=== PATIENT | male | born 1965 | race Caucasian/White ===

== ENCOUNTER 2016-12-18 01:08 | Inpatient (IN) | payer OTHER ==
[~2016-12-18] VITALS: Ht 180.3 cm; Wt 112.3 kg
[~2016-12-18 01:08] MED LIST: BENADRYL25 MG PO; DIPHENHYDRAMINE50 M1 PO; DIVALPROEX SOD250 M3 PO; HYDROXYZINE HCL50 M1 PO; LINDANE60 M1 TOP; LINDANE60 ML TOP; OLANZAPINE10 M1; PERMETHRIN60 GM TOP; PERPHENAZINE4 MG PO; POLYTRIM O200 GTT/BO OPH; PRAVASTATIN SOD20 M2 PO; PREDNISONE20 M1 PO; VENLAFAXINE HY150 MG PO; VENLAFAXINE HYD75 M1 PO; VENLAFAXINE225 MG PO; VITAMIN B121000 MC2 PO; VOLTAREN GEL1% TOP; ZYPREXA10 M1 PO
--- NOTE | 2016-12-18 01:14 | ED AMS/SEIZURE/WEAK/DIZZY ---
See Addendum History of Present Illness General Chief Complaint: ETOH/Drug Related Complaint Stated Complaint: ETOH? Source: patient, EMS Exam Limitations: intoxication Vital Signs & Intake/Output Vital Signs & Intake/Output Vital Signs Date Time Temp Pulse Resp B/P Pulse O2 O2 Flow FiO2 Ox Delivery Rate 12/18 2208 97.9 74 18 96/62 96 Room Air 12/18 1953 97.7 65 18 134/60 94 Room Air 12/18 1759 98.3 83 18 116/58 12/18 1753 98.3 83 18 116/58 95 Room Air 12/18 1337 88 18 126/84 97 Room Air 12/18 1335 98.3 81 20 120/59 12/18 1334 98.3 81 120/59 96 Room Air 12/18 1130 98.6 88 16 127/60 12/18 1128 98.6 88 16 127/60 94 Room Air 12/18 0845 97.1 82 20 115/69 99 Room Air ED Intake and Output 12/19 0000 12/18 1200 Intake Total 30 Output Total Balance 30 Intake, Oral 30 Patient 211 lb Weight Allergies Coded Allergies: Penicillins (UNKNOWN 10/07/16) Triage Nurses Notes Reviewed? yes Onset: Gradual Duration: hour(s): Timing: recent history Injury Environment: home Severity: moderate Modifying Factors: Improves With: rest. Associated Symptoms: "I was drinking tonight." HPI: 51 yo gentleman brought in by ambulance. Per the medics, "he got into an argument with his brother and said threatening statements. His brother called the police." The patient states to me, "I want to put a knife into the neck of my brother." "I might want to kill myself." "I want to go to [place] where they helped me before." He states he was drinking tonight, but denies other drug use. (MASHA BOWLING,ALEXANDRO Alan) Reconcile Medications Divalproex Sodium (Divalproex Sodium ER) 250 MG TAB.ER.24H 3 TAB PO QPM MENTAL HEALTH (Reported) Hydroxyzine Pamoate 50 MG CAPSULE 1 CAP PO QPM SLEEP (Reported) Olanzapine 20 MG TABLET 1 TAB PO QPM MENTAL HEATLH (Reported) (JENNIFER BOWLING,ABNER) Past History Travel History Traveled to [place] past 21 day No Medical History Any Pertinent Medical History? 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 No (MASHA BOWLING,ALEXANDRO Alan) Review of Systems Review of Systems Constitutional: Reports: no symptoms. EENTM: Reports: no symptoms. Respiratory: Reports: no symptoms. Cardiovascular: Reports: no symptoms. GI: Reports: no symptoms. Genitourinary: Reports: no symptoms. Musculoskeletal: Reports: no symptoms. Skin: Reports: no symptoms. Neurological/Psychological: Reports: no symptoms. Hematologic/Endocrine: Reports: no symptoms. Immunologic/Allergic: Reports: no symptoms. All Other Systems: Reviewed and Negative (MASHA BOWLING,ALEXANDRO Alan) Physical Exam Physical Exam General Appearance: well developed/nourished, anxious, moderate distress Head: atraumatic, normal appearance Eyes: Bilateral: normal appearance. Ears, Nose, Throat: normal pharynx, normal ENT inspection Neck: normal inspection, supple, full range of motion Respiratory: normal breath sounds, chest non-tender, no respiratory distress, quiet respiration, lungs clear Cardiovascular: regular rate/rhythm Gastrointestinal: normal bowel sounds, soft, non-tender, no organomegaly Back: normal inspection, normal range of motion Extremities: normal range of motion Neurologic/Psych: no motor/sensory deficits, awake, alert, oriented x 3, agitated, belligerent Reflexes: 1+: bicep (R), bicep (L), knee (R), knee (L). Skin: intact, normal color, warm/dry Core Measures ACS in differential dx? No CVA/TIA Diagnosis: No Severe Sepsis Present: No Septic Shock Present: No (MASHA BOWLING,ALEXANDRO Alan) Progress Differential Diagnosis: alcohol ingestion vs drugs vs other. Plan of Care: Orders Procedure Date/time Status Continuous Observation Monitor 12/18 1900 Active Continuous Observation Monitor 12/18 1500 Active Continuous Observation Monitor 12/18 1100 Active Continuous Observation Monitor 12/18 0700 Active Current Medications Sig/Katerina Start time Last Medication Dose Stop Time Status Admin Olanzapine 20 MG QAM 12/19 1000 UNVr (Zyprexa) 12/19 1001 Initial ED EKG: none Hand-Off Endorsed To: ABNER RODRIGUEZ MD Endorsed Time: 0700 Pending: consult, other (sobriety) (ALEXANDRO FLANAGAN MD) Hand-Off Endorsed To: VEE BAKER MD Endorsed Time: 1900 Pending: CT (bed searcg), consult, other (ABNER RODRIGUEZ MD) Hand-Off Endorsed To: ABNER RODRIGUEZ MD Endorsed Time: 0700 Pending: consult (INPATIENT BED SEARCH) (VEE BAKER MD) Departure Departure Disposition: STILL A PATIENT Condition: Stable Clinical Impression Primary Impression: Alcohol intoxication Secondary Impressions: Depression Referrals: UNKNOWN (PCP/Family) Departure Forms: Customer Survey General Discharge Information (ALEXANDRO FLANAGAN MD) Departure Departure Disposition: STILL A PATIENT Condition: Stable Clinical Impression Primary Impression: Alcohol intoxication Secondary Impressions: Depression Referrals: UNKNOWN (PCP/Family) Departure Forms: Customer Survey General Discharge Information (ALEXANDRO FLANAGAN MD)
[2016-12-18 02:01] LABS: ABSOLUTE BASOPHIL COUNT 0.1 /CUMM (0.0-0.2); ABSOLUTE EOSINOPHIL COUNT 0 /CUMM (0.0-0.7); ABSOLUTE GRANULOCYTE CT 4.6 /CUMM (1.4-6.5); ABSOLUTE LYMPH COUNT 1.6 /CUMM (1.2-3.4); ABSOLUTE MONOCYTE COUNT 0.3 /CUMM (0.10-0.60); BASOPHIL % 0.9 % (0.0-2.0); EOSINOPHIL % 0.3 % (0-5); GRANULOCYTE % 70.1 % (42.2-75.2); MEAN CORPUSCULAR HGB CONC 34.8 G/DL (33.0-37.0); MEAN CORPUSCULAR VOLUME 94.9 FL (80.0-94.0); MEAN PLATELET VOLUME 6.7 FL (7.4-10.4); PLATELET COUNT 286 /CUMM (130-400); RBC DISTRIBUTION WIDTH 13.2 % (11.5-14.5); RED BLOOD CELL CT 4.64 /CUMM (4.70-6.10); WHITE BLOOD CELL COUNT 6.5 /CUMM (4.8-10.8)
[2016-12-18 11:30] VITALS: BP 127/60
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
[2016-12-18 13:35] VITALS: BP 120/59
[2016-12-18] MEDS ORDERED: OLANZAPINE20 M1 PO (14:40)
[2016-12-18] MEDS ORDERED: HYDROXYZINE PAM50 M1 PO (14:40)
[2016-12-18 17:59] VITALS: BP 116/58
[2016-12-18 22:09] VITALS: BP 96/62
[2016-12-19] VITALS (8 sets, daily range): BP systolic 97–128; BP diastolic 51–75
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
[2016-12-20 03:32] VITALS: BP 130/70
[2016-12-20 06:09] VITALS: BP 138/69
[2016-12-20 10:27] VITALS: BP 117/69
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
[2016-12-20 15:25] VITALS: BP 135/85
[2016-12-20 15:29] VITALS: BP 137/91
--- NOTE | 2016-12-20 15:56 | History & Physical ---
General Information and HPI MD Statement: I have seen and personally examined MELIA HERNADEZ and documented this H&P. The patient is a 51 year old M who presented with a patient stated chief complaint of suicidal ideation Source of Information: patient Exam Limitations: no limitations History of Present Illness: 51-year-old male with past medical history significant for alcohol dependence, anxiety, bipolar disease, depression, schizo affective disorder, hyperlipidemia, GERD who is admitted to Inpatient Psychiatry with suicidal ideation. Patient also had some auditory hallucinations. He also expressed homicidal ideation towards his brother according to the note in the emergency room. Patient claims that he lives in a tent because he cannot live with his brother anymore. He tries to follow-up with behavioral health regularly. He was also drinking alcohol. He fell backwards and now has a bruise on his back. He also complains of pain in his left heel due to a past history of calcaneal fracture which was healed on its own. He denies any shortness of breath, fevers, chills, abdominal pain, nausea, vomiting, diarrhea, constipation or urinary complaints. Allergies/Medications Allergies: Coded Allergies: Penicillins (UNKNOWN 10/07/16) Home Med list Divalproex Sodium (Divalproex Sodium ER) 250 MG TAB.ER.24H 3 TAB PO QPM MENTAL HEALTH (Reported) Hydroxyzine Pamoate 50 MG CAPSULE 1 CAP PO QPM SLEEP (Reported) Olanzapine 20 MG TABLET 1 TAB PO QPM MENTAL HEATLH (Reported) Past History Travel History Traveled to [place] past 21 day No Medical History Neurological: NONE EENT: NONE Cardiovascular: NONE Respiratory: NONE Gastrointestinal: GERD Hepatic: NONE Renal: NONE Musculoskeletal: chronic back pain Psychiatric: alcohol dependence, anxiety, bipolar disease, depression, schizo affective disorder Endocrine: NONE Blood Disorders: NONE Cancer(s): NONE ASSEMBLY TECHNICIAN/Reproductive: NONE History of MRSA: No History of VRE: No History of CDIFF: No Isolation History: Standard Surgical History Surgical History: Hand surgery Past Family/Social History Family History Relations & Conditions if any FATHER FH: myocardial infarction Psychosocial History Who Do You Live With? Brother Services at Home: None Primary Language: Kyrgyz Functional Ability ADLs Independent: dressing, eating, toileting, bathing. Ambulation: independent IADLs Independent: shopping, housework, finances, food prep, telephone, transportation , medication admin. Review of Systems Review of Systems Constitutional: Reports: see HPI. EENTM: Reports: see HPI. Cardiovascular: Reports: see HPI. Respiratory: Reports: see HPI. GI: Reports: see HPI. Genitourinary: Reports: see HPI. Musculoskeletal: Reports: see HPI. Skin: Reports: see HPI. Neurological/Psychological: Reports: see HPI. Exam & Diagnostic Data Last 24 Hrs of Vital Signs/I&O Vital Signs Date Time Temp Pulse Resp B/P Pulse O2 O2 Flow FiO2 Ox Delivery Rate 12/20 1529 82 137/91 12/20 1525 96.5 72 135/85 12/20 1333 97.0 73 18 138/85 96 Room Air 12/20 1028 97.7 72 20 117/69 96 Room Air 12/20 1027 97.7 72 20 117/69 12/20 0609 97.0 72 16 138/69 12/20 0608 97.0 72 16 138/69 95 Room Air 12/20 0332 98.0 80 18 130/70 12/20 0329 98.0 80 18 130/70 96 Room Air 12/19 2313 98.8 85 18 142/73 96 Room Air 12/19 2107 97.5 65 16 118/58 94 Room Air 12/19 2106 97.5 65 16 118/58 12/19 1910 97.5 65 16 118/75 12/19 1858 97.5 65 16 118/75 95 Room Air Intake & Output 12/20 1600 12/20 0800 12/20 0000 Intake Total Output Total Balance Patient 248 lb Weight Physical Exam General Appearance Alert, Oriented X3, Cooperative Skin bruising in the right flank area HEENT PERRLA Neck Supple Cardiovascular Regular Rate, Normal S1, Normal S2 Lungs Clear to Auscultation Abdomen Normal Bowel Sounds, Soft, No Tenderness Neurological Cranial Nerves II through XII: intact Extremities No Edema Last 24 Hrs of Labs/Edi: Laboratory Tests 12/20/16 0610: Triglycerides 153 H, Cholesterol 300 H, LDL Cholesterol, Calc 238 H, HDL Cholesterol 32 L, Cholesterol/HDL Ratio 9 H, Amylase 56, TSH 2.220, Valproic Acid 47.9 L Laboratory Tests 12/20 12/18 12/18 0610 0154 0140 Chemistry Sodium (137 - 145 mmol/L) 139 Potassium (3.5 - 5.1 mmol/L) 4.3 Chloride (98 - 107 mmol/L) 102 Carbon Dioxide (22 - 30 mmol/L) 21 L Anion Gap (5 - 16) 15 BUN (9 - 20 mg/dL) 14 Creatinine (0.7 - 1.2 mg/dL) 1.2 Estimated GFR (>60 ml/min) > 60 BUN/Creatinine Ratio (7 - 25 %) 11.7 Glucose (65 - 99 mg/dL) 132 H Calcium (8.4 - 10.2 mg/dL) 9.5 Total Bilirubin (0.2 - 1.3 mg/dL) 1.0 AST (17 - 59 U/L) 23 ALT (21 - 72 U/L) 36 Alkaline Phosphatase (< 127 U/L) 60 Total Protein (6.3 - 8.2 g/dL) 8.0 Albumin (3.5 - 5.0 g/dL) 4.6 Globulin (1.9 - 4.2 gm/dL) 3.4 Albumin/Globulin Ratio (1.1 - 2.2 %) 1.4 Triglycerides (<150 mg/dL) 153 H Cholesterol (< 200 MG/DL) 300 H LDL Cholesterol, Calc (65 - 129 mg/dL) 238 H HDL Cholesterol (40 - 60 mg/dL) 32 L Cholesterol/HDL Ratio (0.00 - 4.88 %) 9 H Amylase (30 - 110 U/L) 56 TSH (0.270 - 4.200 uIU/mL) 2.220 Hematology CBC w Diff NO MAN DIFF REQ WBC (4.8 - 10.8 /CUMM) 6.5 RBC (4.70 - 6.10 /CUMM) 4.64 L Hgb (14.0 - 18.0 G/DL) 15.3 Hct (42 - 52 %) 44.0 MCV (80.0 - 94.0 FL) 94.9 H MCH (27.0 - 31.0 PG) 33.0 H RDW (11.5 - 14.5 %) 13.2 Plt Count (130 - 400 /CUMM) 286 MPV (7.4 - 10.4 FL) 6.7 L Gran % (42.2 - 75.2 %) 70.1 Lymphocytes % (20.5 - 51.1 %) 23.9 Monocytes % (1.7 - 9.3 %) 4.8 Eosinophils % (0 - 5 %) 0.3 Basophils % (0.0 - 2.0 %) 0.9 Absolute Granulocytes (1.4 - 6.5 /CUMM) 4.6 Absolute Lymphocytes (1.2 - 3.4 /CUMM) 1.6 Absolute Monocytes (0.10 - 0.60 /CUMM) 0.3 Absolute Eosinophils (0.0 - 0.7 /CUMM) 0 Absolute Basophils (0.0 - 0.2 /CUMM) 0.1 PUBS MCHC (33.0 - 37.0 G/DL) 34.8 Toxicology Urine Opiates Screen (>2000 NG/ML) < 100.00 Methadone Screen (>300 NG/ML) < 40 Barbiturate Screen (>200 NG/ML) < 60 Valproic Acid (50 - 120 ug/mL) 47.9 L Ur Phencyclidine Scrn (>25 NG/ML) < 6.00 Amphetamines Screen (>1000 NG/ML) < 100 U Benzodiazepines Scrn (>200 NG/ML) < 85 Urine Cocaine Screen (>300 NG/ML) < 50 Urine Cannabis Screen (>50 NG/ML) < 5.00 Serum Alcohol (<10 MG/DL) 263.0 12/18 0114 Chemistry Hemoglobin A1c Pending Assessment/Plan Assessment: 51-year-old male with past medical history significant for alcohol dependence, anxiety, bipolar disease, depression, schizo affective disorder, GERD, Hyperlipidemia who is now admitted with suicidal ideation, psychosis. Patient is admitted to Inpatient Psychiatry. His lipid panel is showing very high LDL as well as triglycerides. Statin has been added. Can use Tylenol as needed for pain in the heel. I will leave the psychiatric management up to psychiatrist. As Ranked By This Provider Problem List: 1. Alcohol abuse 2. Depression 3. Suicidal ideations 4. Schizophrenia Miscellaneous Miscellaneous Documentation Attending Case Discussed With: Kelsi Woodward MD Primary Care Physician: UNKNOWN Patient sees these [facility] Behavior[facility]. Level of Patient Care: JACKIE Alfaro
[2016-12-20 19:44] VITALS: BP 147/91
[2016-12-21 08:01] VITALS: BP 135/88
[2016-12-21 12:15] VITALS: BP 144/83
--- NOTE | 2016-12-21 14:23 | SOCIAL WORKER PROG NOTE PSYCH ---
Social Work Progress Note Progress Note Darek informed me that he has an appt. on 12/[address] to pay a $50 fine. He signed a release for me to fax a letter to them. Darek reports that his Brother is being evicted from his apt. because someone reported that he was staying with him. Darek has been staying in a tent in the [facility] for the last week. Darek wants to stay connected to [facility]. This is why he hasn't wanted to leave the [place] area. He would like to be able to get into [facility], but hasn't been able to get in. Reports that he had an appt. with [address] a month ago, but reports nothing happens and he doesn't want to go to a [facility] in [place] and have to carry his stuff around all day. We talked about housing options: [facility] in [facility], [facility] in [place], and he brought up a ministry program in [place] that has housing. He has been reluctant, due to all services being in [place]. He signed a release for [facility] and encouraged me to speak with his rn case manager hospice Bradley Jaramillo. Reports that he has been taking his meds. Minimized any drinking, stating he has drank a couple of beers with his brother a couple days a week if at that.
[2016-12-21 16:03] VITALS: BP 147/89
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
--- NOTE | 2016-12-21 17:36 | SOCIAL WORKER TX PLAN PSYCH ---
Treatment Plan - Please Document: - Evidence that there is ongoing collaboration between - the patient and the interdisciplinary team, - including the patient's active participation and - responsibility for engaging in the treatment regimen, - and that the treatment plan is individualized and - relevant to the patient's conditions. - Treatment plan should reflect documentation indicating - that all active therapeutic efforts are included. Strengths/Capabilities: Pt is able to articulate his wants and needs. Pt is asking for help at present. Physical Limitations (Interventions): None identified. Patient Identified Trmt Goals: "I need a place to go" Discharge Plan: Patient will need referrals for housing. Has clinical follow up with [facility]. Problem/Goals #1 Problem #1: depression Goal (Short Term): I will go to 3 groups a day Goal (Teachers Assistant): I will take my medications as prescribed Interventions: Patient will be offered medication management with the TEACHER DRAMATICS, groups on symptom management, coping skills, goals group, relaxation, accupuncture, self-esteem. Production Cloth Cutter will discuss events triggering depression and help problem solve around housing dilemma. Production Cloth Cutter will coordinate with clinical provider and assist with aftercare. Problem/Goals #2 Problem #2: alcohol dependence/abuse Goal (Short Term): patient will identify triggers to alcohol use. Goal (M[facility]): patient will develop a relapse prevention plan Interventions: patient will be offered groups on relapse prevention, AA, coping skills. Production Cloth Cutter will discuss attendance at AA in the commmunity and pros and cons to behavior. DSM5/PS Stressors/Medical Prob Diagnosis' (DSM 5, Stressors, Medical): F25.1 Schizoaffective Disorder, Depressive Type F10.20 Alcohol Use Disorder, Severe Current GAF: 29 Treatment Team - Responsibilities of members of the treatment team include: - Medication Management- MD or TEACHER DRAMATICS - Medication Administration and Monitoring- Nurse - Group Therapy- Occupational Therapist - 1:1 Therapy,Disch Planning,family involvement-Production Cloth Cutter
[2016-12-21 20:01] VITALS: BP 145/83
[2016-12-22 08:01] VITALS: BP 128/94
[2016-12-22 13:28] VITALS: BP 136/91
--- NOTE | 2016-12-22 15:45 | SOCIAL WORKER PROG NOTE PSYCH ---
Social Work Progress Note Progress Note Darek was in bed alot today. Met with Lulu Torres APRN and I. Said he was sad today. Rated sadness at a 9 out of 10 (10 being worst). He is looking to have some of his belongings moved out of his Brother's house. His cousin will most likely pick them up and bring them to her house. He will have a duffle bag and backpack that he will need to get when he leaves here. He was more open today to looking at various options for housing outside of the [place] area. He remained closed off to the idea of going to [facility], but open to possibilities in [place]. He agreed to do a [facility] to the [facility]. He also signed release for me to contact [facility]. He said he would like to get into the [address] [place] [id number] ministry program in [place]. He was there in the past and believes he was in good standing when he left. I told him I would get him the number for him to call. He was tearful during the meeting, anxious about where he will be going from here. I called [facility] and I was told that he was not on their waiting list and that he really needed to go back through [facility]. I sent a clinical packet to [facility] in [place].
[2016-12-22 16:35] VITALS: BP 150/78
--- NOTE | 2016-12-22 16:49 | CP SOUTH PROGRESS NOTE PSYCH ---
Psych (Inpt) Progress Note Progress Note Include the following elements, when applicable: Involvement in the active treatment of the patient with behavioral observations of the patient and the patient's response to the treatment. Review of the ongoing treatment process in the context of the treatment plan. Indication of how multi-disciplinary staff members are carrying out the treatment plan. Plans for future interventions and recommendations for revision of the treatment plan. Liaison with other physicians/providers. Progress Note: [I discussed this patient's progress to date, current mental status, treatment process in the context of the treatment plan, and discharge planning with staff/ team in the daily morning inpatient team meeting. I also met with the patient myself in individual session.] SUBJECTIVE: "I'm sad." OBJECTIVE: Current Medications Sig/Katerina Start time Last Medication Dose Route Stop Time Status Admin Acetaminophen 650 MG Q6P PRN 12/20 1230 AC PO Al Hydroxide/Mg 30 ML Q4-6 PRN PRN 12/20 1230 AC Hydroxide PO Divalproex Sodium 1,000 MG AT BEDTIME 12/21 2200 AC 12/21 PO 2152 Folic Acid 1 MG DAILY 12/20 1235 DC 12/22 PO 12/22 1001 0754 Hydroxyzine HCl 50 MG Q6P PRN 12/20 1230 AC PO Lorazepam 0.5 MG 0800,12/23 2000 AC PO 12/24 0801 Lorazepam 0.5 MG FOUR TIMES A DAY 12/22 1000 AC 12/22 PO 12/22 2101 1355 Lorazepam 1 MG 12/21 2200 DC 12/21 PO 12/21 2201 2153 Lorazepam 2 MG Q2P PRN 12/20 1245 AC PO Lorazepam 1 MG Q2P PRN 12/20 1245 AC PO Lorazepam 1 MG Q6 12/20 1245 DC 12/21 PO 1251 Magnesium Hydroxide 30 ML AT BEDTIME PRN 12/20 1230 AC PO Multivitamins 1 TAB DAILY 12/20 1235 AC 12/22 PO 0754 Olanzapine 20 MG AT BEDTIME 12/21 2200 AC 12/21 PO 2152 Pravastatin Sodium 20 MG 1700 12/20 1700 AC 12/21 PO 1827 Thiamine HCl 100 MG DAILY 12/20 1235 DC 12/22 PO 12/22 1001 0754 Vital Signs Date Time Temp Pulse Resp B/P Pulse O2 O2 Flow FiO2 Ox Delivery Rate 12/22 1635 76 150/78 12/22 1328 94 136/91 12/22 08 96.2 69 128/94 12/21 2000 96.5 86 145/83 ASSESSMENT: Met with patient today, together with Bailee Rodas LCSW. Patient presented A&Ox4. Presented sad and guarded. Affect was mostly constricted, but tearful at times when expressing his housing concerns. Expressed his concerns of being uncertain of where he will discharge to. He reported that he was in contact with his cousin, who will get his belongings from his brother's home. He reported feeling somewhat hopeless and helpless secondary to housing issues. He denied feeling worthless and guilty. He reported sadness of 9/10 (10 being the worst). He denied acute symptoms of anxiety. He denied active and passive suicidal ideation , plans and intent. He denied homicidal ideation. There was no evidence of paranoia or delusions. He denied auditory and visual hallucinations. Thought process was linear and organized. Thought content was appropriate. Cognition was grossly intact. Reported his sleep as good. Reported appetite as fair, and that he vomited once last night. No vomiting episodes today. Patient was informed to notify nursing if this should recur. He denied further physical complaints. Patient reported tolerating medications well and denied untoward medication effects. Agreeable to continue taking medications. Informed of VPA level tomorrow morning. Patient verbalized understanding. PLAN: 1. Continue current medications. 2. VPA level scheduled tomorrow morning at 0600. 3. Continue monitoring the patient on unit for safety and mood. 4. Dispo planning per primary team.
[2016-12-22 19:44] VITALS: BP 134/79
--- NOTE | 2016-12-23 08:19 | CP SOUTH PROGRESS NOTE PSYCH ---
Psych (Inpt) Progress Note Progress Note Include the following elements, when applicable: Involvement in the active treatment of the patient with behavioral observations of the patient and the patient's response to the treatment. Review of the ongoing treatment process in the context of the treatment plan. Indication of how multi-disciplinary staff members are carrying out the treatment plan. Plans for future interventions and recommendations for revision of the treatment plan. Liaison with other physicians/providers. Progress Note: [I discussed this patient's progress to date, current mental status, treatment process in the context of the treatment plan, and discharge planning with staff/ team in the daily morning inpatient team meeting. I also met with the patient myself in individual session.] SUBJECTIVE: "I'm alright, I guess." OBJECTIVE: Laboratory Tests 12/23 558 Toxicology Valproic Acid (50 - 120 ug/mL) 50.4 Current Medications Sig/Katerina Start time Last Medication Dose Route Stop Time Status Admin Acetaminophen 650 MG Q6P PRN 12/20 1230 AC PO Al Hydroxide/Mg 30 ML Q4-6 PRN PRN 12/20 1230 AC Hydroxide PO Divalproex Sodium 1,000 MG AT BEDTIME 12/21 2200 AC 12/22 PO 2136 Folic Acid 1 MG DAILY 12/20 1235 DC 12/22 PO 12/22 1001 0754 Hydroxyzine HCl 50 MG Q6P PRN 12/20 1230 AC 12/23 PO 0751 Lorazepam 0.5 MG 0800,12/23 2000 CAN PO 12/24 0801 Lorazepam 0.5 MG 0800,12/23 0800 AC PO 12/23 2201 Lorazepam 0.5 MG FOUR TIMES A DAY 12/22 1000 DC 12/22 PO 12/22 2101 2101 Lorazepam 2 MG Q2P PRN 12/20 1245 AC PO Lorazepam 1 MG Q2P PRN 12/20 1245 AC PO Magnesium Hydroxide 30 ML AT BEDTIME PRN 12/20 1230 AC PO Multivitamins 1 TAB DAILY 12/20 1235 AC 12/23 PO 0751 Olanzapine 20 MG AT BEDTIME 12/21 2200 AC 12/22 PO 2136 Pravastatin Sodium 20 MG 1700 12/20 1700 AC 12/22 PO 1806 Thiamine HCl 100 MG DAILY 12/20 1235 DC 12/22 PO 12/22 1001 0754 Vital Signs Date Time Temp Pulse Resp B/P Pulse O2 O2 Flow FiO2 Ox Delivery Rate 12/22 1943 97.8 88 134/79 12/22 1635 76 150/78 12/22 1328 94 136/91 ASSESSMENT: Met with patient today at 8:00AM. Presented A&Ox3. Appeared guarded and withdrawn. Engaged in conversation with prompting and when asked direct questions. Affect was constricted. Mood, "alright, I guess." Patient continued to express concerns about where he will discharge to, and reported feeling guilty over his brother's recent eviction, identifying that he was the cause for this. Reported sleeping poorly, due to present roommate snoring last night. Denied NMA. Reported appetite as good. Denied further episodes of vomiting since yesterday. Had no physical complaints. Reported feeling helpless and hopeless, related to uncertainty of housing status. Reported sadness of 7/10 (10 being the worst) and anxiety of 4/10 (10 being the worst), related to housing concerns. Reported "I would feel so much better If I had somewhere to go to." Reported + racing thoughts triggered by anxiety of not knowing where he will go to from here. Patient denied passive and active suicidal ideation, plans and intent. He denied homicidal ideation. He denied auditory and visual hallucinations. There was no evidence of paranoia or delusions. Thought process was linear and organized. Thought content was appropriate. Cognition was grossly intact. Patient is future oriented to find temporary residence, and reported leaving a yesterday for [address] [place] [address] [employer] [facility] in [place], where he had stayed in the past and received medication management through [facility] in [place]. Patient reported tolerating medication well, and denied untoward medication effects. VPA level this morning was 50.4. Patient agreeable to increasing Depakote ER to 1500mg at HS to further target racing thoughts. PLAN: 1. Continue monitoring the patient on unit for safety, mood and racing thoughts. 2. Increase Depakote ER to 1500mg at HS. 3. Rpt VPA level scheduled for 12/26/16 at 0600. 4. Dispo planning per primary team.
[2016-12-23 08:31] VITALS: BP 130/79
--- NOTE | 2016-12-23 09:11 | SOCIAL WORKER PROG NOTE PSYCH ---
Social Work Progress Note Progress Note Called the [address] [place] [address] in [place] this morning and left a message this morning to see about the referral process. Called [facility] as well, but didn' t reach anyone. Darek has been in bed all day. Remains isolative. We talked for a few minutes. He refuses a referral to [facility]. He is set on staying in his tent in the [place], so that he can get to his [facility] appts. I told him that I heard back from Sebastien at [address] [place] [address] and he left a message stating that there are no beds open right now, but he could go to their outpatient and get in a bed a soon as one opens. Darek stated that they would want him to stay at the overflow long-term in the meantime and he's not going to do that. I told him that we are proposing discharge for Tuesday and he's really limiting his options. Encouraged him to call 211 today. He refuses to go through their system, as he has tried and feels it doesn't help. Continues to remain sad/ depressed, no current SI. Complaining for a 2nd day in a row that his stomach was upset and that he vomitted in the morning. Asked if he told nursing? He said no. Reminded him that he needed to tell nursing.
[2016-12-23 12:09] VITALS: BP 136/78
[2016-12-23 16:04] VITALS: BP 147/90
[2016-12-23 20:08] VITALS: BP 145/78
[2016-12-24 07:46] VITALS: BP 133/81
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
--- NOTE | 2016-12-24 10:46 | IP INCIDENTAL NOTE PSYCH ---
Incidental Note Notation: left ([phone]) for Dr. Ring from [facility], for clinical collateral. Awaiting return phone call.
--- NOTE | 2016-12-24 11:22 | SOCIAL WORKER PROG NOTE PSYCH ---
Social Work Progress Note Progress Note Talked to Rhea Ibrahim at [facility] about Darek. Gave her an update about his refusals for housing referrals and to call 211. Appt follow up: 12/30 10:30 group , 01/04 appt. with Camilo Bell (clinician) 10am, 01/[address] 12:[address] Ring. Informed her that Darek will be discharged on Tuesday and that his plan was to go to the tent he has set up in the [facility].
[2016-12-24 12:25] VITALS: BP 134/76
[2016-12-24 15:55] VITALS: BP 151/79
--- NOTE | 2016-12-24 16:27 | SOCIAL WORKER PROG NOTE PSYCH ---
Social Work Progress Note Progress Note Met with Darek this morning, he was in bed. He stated he didn't sleep last nigh ('My roommate was snoring."). He denied SI/HI, no AH/VH. His thoughts were organized. He reports he is "depressed," stated he is livign in a tent in the [facility]. Discussed possible options such as calling 211 (he reports he has gone to [facility] and [facility] [place] [facility] to compelte applications for a fpc bed, but there are no beds available where he wants - [facility]). Darek stated "I am not going to fill out more paperwork just to be told there are no beds open at [facility]." Discussed going to [facility] for 2 weeks in [place] or [place], he refused stating "then what"... where will I go? Explained that he can have some time to wait for a bed to open up, and how he may need to be open to going to other towns other than the [place]. He is refusing to consider this.. "I am fine with staying in my tent." He explained how his brother is at risk of losing his apartment due to having hi (Darek) stay with him, and that he (Darek) could go to his ex-girlfriends apartment "but she is crazy..I'd rather stay in the [facility] in my tent." Darek stated he did stay in [place] for a couple nights, at a fpc and didn't like how there were other people there using drugs. Informed Darek Bradley Morales his porter sample case/peer support from [facility] will be visiting him today. Darek stated he doesn't want to live anywhere else because he wants to keep going to [facility] ..."I go to [facility] 3x per week."
[2016-12-24 19:45] VITALS: BP 144/89
[2016-12-25 07:33] VITALS: BP 138/88
[2016-12-25 12:11] VITALS: BP 120/83
--- NOTE | 2016-12-25 15:00 | CP SOUTH PROGRESS NOTE PSYCH ---
Psych (Inpt) Progress Note Progress Note Include the following elements, when applicable: Involvement in the active treatment of the patient with behavioral observations of the patient and the patient's response to the treatment. Review of the ongoing treatment process in the context of the treatment plan. Indication of how multi-disciplinary staff members are carrying out the treatment plan. Plans for future interventions and recommendations for revision of the treatment plan. Liaison with other physicians/providers. Progress Note: Isolative, spending much of the time in his room. Stated that he had thrown up once yesterday, none today educated him to inform staff and maintain hydration. Stated that he has a bit of a stomach ache but no other sx. Stated that he wants to return to [facility] and needs to live in his tent in order to get there; that he is aware no miracles happen about housing but will speak w/ SW to discuss any changes for housing when he is discharged. Stated that apart from stomach his mood is better. MSE: middle aged man, lying in bed, isolative. Fair eye contact when engaged; adequately related. No movement d/o noted. Psychomotor slowing (likely b/c was sleeping recently). Affect constricted and mood somewhat depressed. Speech is normal rate and rhythm. Thought process logical.Thought content positive depressed mood at times but future oriented. No evidence of thoughts to harm self/others. No evidence of hallucinations.Insight and judgment fair. A: 51 y/o man w/ hx alcohol use d/o, psychotic and depressive sx, multiple social stressors, with residual isolation and withdrawal but some improvement of sx. P: Continue current plan of care. VPA level tmr.
[2016-12-25 15:41] VITALS: BP 147/80
[2016-12-25 19:15] VITALS: BP 133/80
[2016-12-26 07:55] VITALS: BP 143/91
[2016-12-26 12:15] VITALS: BP 134/76
--- NOTE | 2016-12-26 14:17 | CP SOUTH PROGRESS NOTE PSYCH ---
Psych (Inpt) Progress Note Progress Note Include the following elements, when applicable: Involvement in the active treatment of the patient with behavioral observations of the patient and the patient's response to the treatment. Review of the ongoing treatment process in the context of the treatment plan. Indication of how multi-disciplinary staff members are carrying out the treatment plan. Plans for future interventions and recommendations for revision of the treatment plan. Liaison with other physicians/providers. Progress Note: Stated that he stays in the room during the day b/c his roommate snores and he cant sleep otherwise. Withdrawn, depressed and remains in room. Stated that he has no housing so he may as well kill myself by jumping in front of a car or something. He stated that going to respite for two weeks would not help b/c he to discuss other coping skills rather than resorting to making suicidal plans for his housing situation. Discussed that he needs to make calls to [facility] (where he would be agreeable to go) and that SW can help him if he requests it; but that he needs to make initiative. VPA level remains low at 47; he stated that the pills are too big but he has been taking them; agreeable to take liquid. MSE: middle aged man, poor hygiene, fair grooming. Poor eye contact. No movement d/o noted. Psychomotor slowing, mild. Affect is constricted and mood is depressed. Speech is low, normal rate and rhythm. Thought process concrete.Thought content positive depressed mood, irritability, poor frustration tolerance; suicidal thoughts w/ plan to jump in front of a car if he does not have stable housing some contingent, some out of perceived lack of options. No evidence of hallucinations.Insight and judgment poor. A: 51 y/o man w/ hx alcohol use d/o, psychotic and depressive sx, multiple stressors, with residual depressive sx, suicidal thoughts which appear contingent on stable housing. He has impaired impulse control, significant risk factors which elevate his chronic risk of harm to self/others. Mitigate w/ education regarding outpatient planning; re-eval his sx regularly, attempt to engage in the mileu, groups, discussing his sx w/ staff. P: Continue current plan of care. VPA level 47; was 50 last time. Some consideration that he may be cheeking? Will change to liquid VPA. Team to discuss his discharge plan as he continues to have suicidal thoughts which are related to his discharge plan (though some element of secondary gain, to remain in hospital, clearly present, he does have significant risk factors for self harm).
[2016-12-26 15:40] VITALS: BP 113/82
[2016-12-26 19:47] VITALS: BP 152/83
[2016-12-27 08:17] VITALS: BP 149/80
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
--- NOTE | 2016-12-27 11:47 | CP SOUTH PROGRESS NOTE PSYCH ---
Psych (Inpt) Progress Note Progress Note Include the following elements, when applicable: Involvement in the active treatment of the patient with behavioral observations of the patient and the patient's response to the treatment. Review of the ongoing treatment process in the context of the treatment plan. Indication of how multi-disciplinary staff members are carrying out the treatment plan. Plans for future interventions and recommendations for revision of the treatment plan. Liaison with other physicians/providers. Progress Note: [I discussed this patient's progress to date, current mental status, treatment process in the context of the treatment plan, and discharge planning with staff/ team in the daily morning inpatient team meeting. I also met with the patient myself in individual session.] SUBJECTIVE: "I'm really sad." OBJECTIVE: Current Medications Sig/Katerina Start time Last Medication Dose Route Stop Time Status Admin Acetaminophen 650 MG Q6P PRN 12/20 1230 AC PO Al Hydroxide/Mg 30 ML Q4-6 PRN PRN 12/20 1230 AC Hydroxide PO Divalproex Sodium 1,500 MG AT BEDTIME 12/26 2199 DC 12/26 PO 12/26 2200 2150 Divalproex Sodium 1,500 MG 12/23 2200 DC 12/25 PO 2140 Hydroxyzine HCl 50 MG .STK-MED ONE 12/26 1732 DC PO 12/26 1733 Hydroxyzine HCl 50 MG Q6P PRN 12/20 1230 AC 12/26 PO 1738 Lorazepam 2 MG Q2P PRN 12/20 1245 DC PO Lorazepam 1 MG Q2P PRN 12/20 1245 DC PO Magnesium Hydroxide 30 ML AT BEDTIME PRN 12/20 1230 AC PO Multivitamins 1 TAB DAILY 12/20 1235 AC 12/27 PO 0922 Olanzapine 20 MG AT BEDTIME 12/21 2200 AC 12/26 PO 2150 Pravastatin Sodium 20 MG 1700 12/20 1700 AC 12/26 PO 1736 Valproic Acid 750 MG Q12 12/27 1000 AC 12/27 PO 0922 Valproic Acid 1,500 MG AT BEDTIME 12/26 2200 CAN PO Vital Signs Date Time Temp Pulse Resp B/P Pulse O2 O2 Flow FiO2 Ox Delivery Rate 12/27 816 96.9 71 149/80 12/26 1947 95.8 84 152/83 12/26 1540 75 113/82 12/26 1215 74 134/76 Lab Valproic Acid 47.9 ug/mL L 12/20/16 0610 Valproic Acid 50.4 ug/mL 12/23/16 0559 Valproic Acid 47.7 ug/mL L 12/26/16 0714 ASSESSMENT: Chart, progress notes, VS, labs, and medication list reviewed. Over the weekend, patient's VPA level dropped to 47.9 ug/mL since last draw on 12/23/16. Unclear if patient was nonadherent with medication. Depakote ER 1500mg QHS was changed to Depakene 750mg BID, starting this morning. Met with patient today. Presented alert and oriented to person, place and time. Patient continues to report feeling sad over situation with his brother resulting in his brother being evicted. He reported that over the weekend he received a phone call from his brother, who reported he no longer wants to have contact with the patient. Patient was further perseverative over concern of not having any place to discharge to. Per Bailee Rodas FLEXOGRAPHIC PRESS SET UP OPERATOR, patient was agreeable to option of [facility] and signed [facility] for treatment team to fax referral to [facility]. Patient reported sadness/depression of 9/10 (10 being the worst) and anxiety of 5/10 (10 being the worst) secondary to housing stressors and fall out with brother. He reported passive SI while in hospital, denied plans or intent; further gave safety promise while on unit. He reported that if he were to be discharged with no where to return to he would attempt to run in front of a bus (which he reported he tried in the past). He reported feeling hopeless, guilty, helpless and worthless. He denied homicidal ideation, plans and intent. He denied auditory and visual hallucinations. He reported good sleep and appetite. Cognition was grossly intact. There was no evidence of laz delusions or paranoia. Patient reported tolerating Depakene 750mg BID well and denied untoward medication effects. Patient agreeable to continue taking. Educated patient that repeat VPA level is scheduled on 12/29/16 at 0600. Patient vebalized understanding of education. PLAN: 1. Continue current medications. 2. Repeat VPA level scheduled on 12/29/16 at 0600. 3. FLEXOGRAPHIC PRESS SET UP OPERATOR to fax referral to [facility] housing. 4. Dispo planning per primary team.
[2016-12-27 12:27] VITALS: BP 137/74
[2016-12-27 15:53] VITALS: BP 143/93
--- NOTE | 2016-12-27 16:42 | SOCIAL WORKER PROG NOTE PSYCH ---
Social Work Progress Note Progress Note Completd [facility] review online requested 2 addtional days.
[2016-12-27 19:35] VITALS: BP 144/83
[2016-12-28 08:02] VITALS: BP 135/76
--- NOTE | 2016-12-28 08:32 | CP SOUTH PROGRESS NOTE PSYCH ---
Psych (Inpt) Progress Note Progress Note Include the following elements, when applicable: Involvement in the active treatment of the patient with behavioral observations of the patient and the patient's response to the treatment. Review of the ongoing treatment process in the context of the treatment plan. Indication of how multi-disciplinary staff members are carrying out the treatment plan. Plans for future interventions and recommendations for revision of the treatment plan. Liaison with other physicians/providers. Progress Note: [I discussed this patient's progress to date, current mental status, treatment process in the context of the treatment plan, and discharge planning with staff/ team in the daily morning inpatient team meeting. I also met with the patient myself in individual session.] SUBJECTIVE: "I'm not going to [place]" OBJECTIVE: Current Medications Sig/Katerina Start time Last Medication Dose Route Stop Time Status Admin Acetaminophen 650 MG Q6P PRN 12/20 1230 AC PO Al Hydroxide/Mg 30 ML Q4-6 PRN PRN 12/20 1230 AC Hydroxide PO Hydroxyzine HCl 50 MG Q6P PRN 12/20 1230 AC 12/26 PO 1738 Magnesium Hydroxide 30 ML AT BEDTIME PRN 12/20 1230 AC PO Multivitamins 1 TAB DAILY 12/20 1235 AC 12/27 PO 0922 Olanzapine 20 MG AT BEDTIME 12/21 2200 AC 12/27 PO 2129 Pravastatin Sodium 20 MG 1700 12/20 1700 AC 12/27 PO 1651 Valproic Acid 750 MG Q12 12/27 1000 AC 12/27 PO 2129 Vital Signs Date Time Temp Pulse Resp B/P Pulse O2 O2 Flow FiO2 Ox Delivery Rate 12/28 0802 96.5 68 135/76 12/27 1935 96.8 82 144/83 12/27 1553 80 143/93 12/27 1227 74 137/74 ASSESSMENT: Chart, progress notes, VS, labs, medication list reviewed. Per nursing report, the patient has been mostly isolative to his room and not attending milieu therapy groups. Met with the patient today, together with Bailee Rodas LCSW, to review with the patient disposition options post-discharge from [facility]. Patient remained resistant to pursuing placement at [facility] in [place], where he was accepted for a temporary bed. Patient reported "I don't wanna be stranded in [place], when all my appointments are in [place]." Primary team educated the patient that [facility] would assist with transportation to/from [facility] appointments. Patient continued to show resistance to [facility] option, and refused. Patient reported he prefers to return to his tent, and showed limited insight when it was reviewed with him that this had been one of his stressors leading to inpatient psychiatric hospitalization. Patient presented A&Ox3, mood appeared irritable and defensive. Affect remained constricted. He continued to report passive suicidal ideation, denied plans/ intent while in hospital. Reported that if he were to be discharged today, he would walk in front of a bus. Patient continues to endorse anxiety and depression related to housing situation. Patient encouraged to call 211 for usp intake, given his continued refusal of disposition options presented to him by primary treatment team. Patient denied homicidal ideation, plans and intent. He denied auditory/visual hallucinations. Insight and judgement remain limited. Cognition grossly intact. No evidence of laz delusions or paranoia. Patient reported tolerating medications well and denied untoward medication effects. Informed of VPA level scheduled tomorrow morning at 0600. Patient verbalized understanding of education. PLAN: 1. Continue Depakene 750mg BID po for mood stabilzation; Continue Zyprexa 20mg QHS. 2. VPA level scheduled for tomorrow morning at 0600. 3. Continue monitoring the patient on unit for safety and mood. 4. Patient to [place] [id number] process and call for usp intake. 5. Continue mouth checks following every medication administration. 6. Encourage participation in milieu therapies. 7. Likely discharge tomorrow with Care f/u.
--- NOTE | 2016-12-28 09:12 | SOCIAL WORKER PROG NOTE PSYCH ---
BARTOLO SABINO VEGA 12/28/16 0903: Social Work Progress Note Progress Note Darek, Lulu Torres APRN and I met together this morning to check in with Darek. Darek reported SI today, worse than yesterday with thoughts about jumping infront of a truck. He was adamant that he is not going to the [place] [facility]. I talked about how he was experiencing SI due to the fact that he didn't know where he could live and didn't want to be out on the street, now we have a safe place for him to go and he is refusing. He doesn't feel that he can manage [place]. Reviewed his appt.'s with him, which appear to be about 1x a week for the next few weeks. He continued to say he was refusing. He also believes that there may be a warrant for his arrest, due to not going to court last week. Reminded him that the court was notified that he was hear. He then blamed me for not calling them. I told him he is welcome to call the court anytime. He was defensive, stating he can't use the phone here and he didn't have the number. He was encouraged to ask for the number and told that I could get him on the phone. I told him that if he is here, he is not to use this place a fdc and that he needs to participate in treatment, meaning attend groups. He got angry, stating that he was not using the hospital as a fdc. I told him he could call [facility] and tell them that he is refusing the bed. He stated that he was not calling and that I could call them. I told him that I was not going to do more work than him and he can call and let them know. He got the number and I had him call from the group room phone. After he called he stated staff wanted to talk to me. Cathleen just wanted to confirm that he was not taking the bed. I told her that was correct. Met with Darek again later. Lulu Torres APRN was also there. Talked about doing referrals to rehabs to assist with his sobriety and help get him stablized. He agreed with the plan. Signed releases for [facility], [facility], and [facility]. Told him to also contact [facility]. Faxed clinical to all 3 rehabs. Later Darek approached me and stated that he needs to leave the hospital tomorrow because his Brother informed him that he is being evicted and he going to throw out his stuff if he doesn't come take care of it. He is worried about his belongings and stated he has the money for a storage container and needs to take care of this. I asked if he felt safe to be leaving the hospital? He said yes and that he would feel worse if his stuff is thrown out. He said he'll follow up with [facility] and call the places that I referred him to today to continue to have contact with them. I informed him that I was able to speak with Riaz Delacruz at [facility] and they don't seem to be the program for him, due to his SI. They don't have the clinical staff to manage that there. He understood. ROSA PEOPLES 12/28/16 1423: Social Work Progress Note Progress Note Please include, when applicable: * Interviews with the patient * Interviews with family members * Assessments linked to the treatment plan * Additions to or changes in the treatment plan along with reasons for same * Contacts with family and significant others in treatment, including family meeting(s) * Family attitudes * Community resource contacts and liaison with other clinicians/agencies
[2016-12-28 12:26] VITALS: BP 146/94
[2016-12-28 16:01] VITALS: BP 131/81
[2016-12-28 20:22] VITALS: BP 141/90
[2016-12-29 08:00] VITALS: BP 140/100
--- NOTE | 2016-12-29 09:12 | SOCIAL WORKER PROG NOTE PSYCH ---
Social Work Progress Note Progress Note Lulu Torres APRN and I met with Darek this morning. Asked Darek if he was still feeling ok to leave the hospital today? Darek said yes. I asked if he was feeling safe? He said yes. Denied SI today. Was asked if he were to start and have thoughts of suicide what he would do? He said call 211 or 911. He was reminded that he could go to the ER or speak with crisis staff. I asked what his plan was after leaving the hospital today? He said he was going to go to the [employer] to pay his fine and then go to his Brother's for the night. I asked if that was going to be ok? He said that he spoke with his Brother last night and it was fine with him. He will be working on getting his belongings out of the house and transferring them to a storage facility or his cousin's attic. Reviewed his appt.'s with him at [facility] and told him that I was putting the names and phone numbers to the residential SA programs on his discharge paperwork. He thanked us. Planning to take the bus to the [employer] when he leaves. Discharge planned for 11am.
--- NOTE | 2016-12-29 09:25 | DISCHARGE SUMMARY REPORT-PSYCH ---
Visit Information Visit Dates/Diagnosis' Admission Date: 12/20/16 Discharge Date: 12/29/16 Reason for Admission: Suicidal ideation and auditory hallucinations in the context of medication nonadherence and alcohol intoxication. Psy Discharge Primary Diag: Schizoaffective disorder Psy Discharge Secondary Diag: Alcohol use disorder; High Cholesterol Hospital Course Significant Lab Findings: Lab Serum Alcohol 263.0 MG/DL 12/18/16 0154 Valproic Acid 50.4 ug/mL 12/23/16 0559 Valproic Acid 47.7 ug/mL L 12/26/16 0714 Valproic Acid 49.3 ug/mL L 12/29/16 0534 Course Complications: None. Consultations: The patient was seen for admission history and physical by irrigation laborer Dr. Kelsi Woodward. Please see her note for additional information. Allergies: Coded Allergies: Penicillins (UNKNOWN 10/07/16) Hospital Course/TX Response: The patient was monitored on unit for safety, auditory hallucinations, suicidal ideation, mood and alcohol withdrawal/CIWA monitoring. Patient participated selectively in multimodal treatments on the unit. He was started on an Ativan taper for alcohol withdrawal; did not score on CIWA and vital signs were stable. Zyprexa 20mg at bedtime was continued for clear thoughts/auditory hallucinations /mood stabilization. Depakote ER was increased to 1500mg at bedtime from 1000mg at bedtime for mood stabilization, however VPA level resulted subtherapeutic following increase. It was questioned whether patient was adherent to medications, despite monitoring the patient on mouth checks, and depakote formulation was changed to Depakene 750mg twice daily. Depakote level again resulted subtherapeutic, and patient was resistant to continuing on Depakene oral formulation. The patient's mood stabilized despite a subtherapuetic VPA level. Patient requested on discharge to be switched back to Depakote ER at bedtime, and to discontinue Depakene. Patient was not agreeable to increasing Depakote ER dose from 1500mg to 2000mg at bedtime on discharge, and requested to follow-up with Dr. Ring at [facility] for further medication changes. During the hospital course, the patient's mood and affect improved. Suicidal ideation and auditory hallucinations remitted. He successfully detoxed from alcohol, and did not exhibit any subjective or objective signs of alcohol withdrawal on discharge. He would not allow any family/friends to partake in discharge planning and as a result there was no discharge meeting held with family/friends. Collateral was obtained from [facility], Dr. Ring (see progress notes for collateral). Dr. Ring was in favor of the patient returning to [facility] for after care treatment. The patient was agreeable to returning to [facility] for after care treatment of individual/group therapies and medication management. On the date of discharge, 12/29/16, the patient presented alert and oriented to person, place, time and situation. He reported his mood as "good." Affect appeared calm and constricted. He denied having any complaints. Patient reported depression of 2/10 (10 being the worst) and anxiety of 3/10 (10 being the worst) . He denied active and passive suicidal ideation, plans and intent. He denied homicidal ideation. He stated and also believed he will not harm himself or others. When asked what changed between today and yesterday (when the patient had endorsed SI outside of the hospital), the patient reported he had talked to his brother today who was agreeable to having the patient return to his home on the date of discharge. The patient expressed motivativation to pay his court fine on the date of discharge; in addition to transferring his belongings from his brother's home to a storage facility. The patient identified his brother and cousin as protective factors. Patient expressed desire to continue calling 211 to seek a more perminent housing placement, and also to continue contacting the rehabs that Bailee Rodas LCSW had referred him to during this inpatient stay. Patient was future-oriented to follow-up with [facility] scheduled appointments for group/individual therapies and medication management. He denied auditory and visual hallucinations. There was no evidence of paranoia or laz delusions. Thought process was linear and goal-directed. Thought content was appropriate. Cognition was grossly intact. He reported feeling safe and ready for discharge. The patient verbalized a safety plan to call 211/911/go to nearest emergency department in the event of feeling unsafe, or in the event of an emergency. Reviewed with the patient that VPA level resulted subtherapuetic this morning again (49.3ug/mL), despite increase in Depakote dose. Recommended increasing the patient's depakote dose on discharge, however the patient refused and insisted that he would follow-up with Dr. Ring for scheduled [facility] medication management appointment. Patient requested to be switched back to Depakote ER from Depakene, as he strongly disliked liquid formulation and had not verbalized this before to this junior technical writer. This junior technical writer switched Depakene 750mg from twice a day to Depakote ER 1500mg at bedtime. Patient was in favor of change. Patient denied untoward medication effects and was agreeable to continue taking medications as prescribed post-discharge. Discharge HBIPS - Tobacco Use Treatment Offered Post DC Medications Offered: NA-No Tob Use >30 days Post DC Tobacco Treatment Plan: NA-No Tobacco use >30days - EtOH/Drug Use D/O Treatment Offered Post DC Medications Offered: Ref Med EtOH/Drug Use D/O Post DC EtOH/SubAbuse TX Plan: Refused Post DC Tx Pgm Metabolic Screening - Screen if on a Neuroleptic Medication - Metabolic screening should include: - Blood Pressure, BMI, Glucose or Hgb A1c, & a - Lipid profile from within the past 365 days. Metabolic Screening () Not Applicable, patient not on a neuroleptic. OR ([X]) Patient on a neuroleptic(s) . Enter below results for Glucose or Hemoglobin A1C, and lipid panel if obtained during the last 365 days. BMI: 34.500 Blood Pressure: 148/90 Laboratory Results (If applicable): Lab Cholesterol 300 MG/DL H 12/20/16 0610 Cholesterol/HDL Ratio 9 % H 12/20/16 0610 Glucose 132 mg/dL H 12/18/16 0154 HDL Cholesterol 32 mg/dL L 12/20/16 0610 LDL Cholesterol, Calc 238 mg/dL H 12/20/16 0610 Triglycerides 153 mg/dL H 12/20/16 0610 Discharge Instructions General Discharge Information Discharge Medications: Discharge Medications- (Dose, route, freq, indication): HOME MEDICATION LIST START taking these NEW Home Medications: Pravastatin Sodium Dose: ORAL, 5 PM for high Qty: 14 Called in to (Pravastatin Sodium) 20 Milligram cholesterol Refills: 0 Pharm 1 20 MG TABLET Last Taken:12/28/16 Time:1730 Divalproex Sodium Dose: ORAL, AT BEDTIME for Qty: 42 Called in to (Divalproex Sodium 1,500 mood stabilization Refills: 0 Pharm 1 ER) 500 MG Milligram Take 3 tablets (1500mg) TAB.[id number] by mouth at bedtime. Last given 750mg of Depakene liquid on 12/29/16 @ 0800 however, this is now switched by provider Lulu Keenan APRN to: Depakote 1,500mg every night to begin tonight - 12/29/16. [Olanzapine] MG Dose: ORAL, AT BEDTIME for Qty: 14 Called in to 20 Milligram mood stabilization Refills: 0 Pharm 1 Take 1 tablet (20mg) by mouth at bedtime. Last Taken:12/28/16 Time:2130 [Hydroxyzine HCl] Dose: ORAL, 2200 as needed for Qty: 14 Called in to MG 100 Milligram INSOMNIA Refills: 0 Pharm 1 Take 1 tablet (100mg) by mouth at bedtime as needed for insomnia. Multivitamin (One Dose: ORAL, DAILY for VITAMIN Qty: 0 None Daily Multivitamin) 1 Tablet SUPPORT Refills: 0 1 EACH TABLET Purchase over the counter. Take 1 tablet by mouth daily. Last Taken:12/29/16 Time:0800 1: [facility] [place] [address] [phone] [facility] [phone] Multiple Neuroleptics: ([X]) Not Applicable OR Document below three failed attempts at monotherapy, or a plan to taper to monotherapy, or augmentation of Clozapine. () Patient's Diet: Regular. Patient's Activity: No restrictions. DC Disposition: Patient to return to his brother's home [facility]; to call [facility] for detention placement. Recommendations: Patient was advised to please take his medications as prescribed. He was advised to follow-up with all [facility] appointments scheduled. He was advised to abstain from alcohol, and to attend AA meetings and obtain a sponsor for support in sobriety. He was educated on the short-term and long-term risks of combining alcohol with prescribed medications. He was advised to follow-up with his PCP for elevated fasting glucose, elevated triglycerides and cholesterol. Patient was advised to contact inpatient rehabs he was referred to during this hospitalization (contact information was provided to patient on discharge instructions/W10). Patient was advised to call 211 for detention intake. Patient was advised that in the event of an emergency, to call 211/911/go to nearest emergency department. The patient verbalized understanding of all instructions. [facility] [address] [place] [address], [place] [address] (t)[phone] Appointment scheduled on 12/30/16 at 10:30AM for group therapy. Appointment scheduled on 01/04/17 at 10AM with clinician Camilo Bell. Appointment scheduled on 01/10/17 at 12:30PM with Dr. Ring for medication management. Copies To: [facility]
[2016-12-29] MEDS ORDERED: HYDROXYZINE HCL PO (09:36)
--- NOTE | 2016-12-29 09:41 | CP SOUTH PROGRESS NOTE PSYCH ---
Psych (Inpt) Progress Note Progress Note Include the following elements, when applicable: Involvement in the active treatment of the patient with behavioral observations of the patient and the patient's response to the treatment. Review of the ongoing treatment process in the context of the treatment plan. Indication of how multi-disciplinary staff members are carrying out the treatment plan. Plans for future interventions and recommendations for revision of the treatment plan. Liaison with other physicians/providers. Progress Note: [I discussed this patient's progress to date, current mental status, treatment process in the context of the treatment plan, and discharge planning with staff/ team in the daily morning inpatient team meeting. I also met with the patient myself in individual session.] SUBJECTIVE: "I feel good." OBJECTIVE: Laboratory Tests 12/29 0534 Toxicology Valproic Acid (50 - 120 ug/mL) 49.3 L Current Medications Sig/Katerina Start time Last Medication Dose Route Stop Time Status Admin Acetaminophen 650 MG Q6P PRN 12/20 1230 AC PO Al Hydroxide/Mg 30 ML Q4-6 PRN PRN 12/20 1230 AC Hydroxide PO Divalproex Sodium 1,500 MG 2200 12/29 2200 AC PO Hydroxyzine HCl 100 MG 2200 PRN 12/29 0930 AC PO Hydroxyzine HCl 50 MG Q6P PRN 12/20 1230 DC 12/26 PO 1738 Magnesium Hydroxide 30 ML AT BEDTIME PRN 12/20 1230 AC PO Multivitamins 1 TAB DAILY 12/20 1235 AC 12/29 PO 0759 Olanzapine 20 MG AT BEDTIME 12/21 2200 AC 12/28 PO 2132 Pravastatin Sodium 20 MG 1700 12/20 1700 AC 12/28 PO 1731 Valproic Acid 750 MG Q12 12/27 1000 DC 12/29 PO 0759 Vital Signs Date Time Temp Pulse Resp B/P Pulse O2 O2 Flow FiO2 Ox Delivery Rate 12/29 1014 148/90 12/29 0800 98.1 98 140/100 12/28 2022 96.4 76 141/90 12/28 1601 80 131/81 12/28 1226 80 146/94 ASSESSMENT: Met with patient today, together with Bailee Rodas LCSW, on the patient's date of discharge. Patient presented alert and oriented to person, place, time and situation. Reported mood as "good." Affect appeared calm and constricted. He denied having any complaints. Patient reported depression of 2/10 (10 being the worst) and anxiety of 3/10 (10 being the worst). He denied active and passive suicidal ideation, plans and intent. He denied homicidal ideation. He stated and also believed he will not harm himself or others. When asked what changed between today and yesterday (yesterday patient endorsed SI and plan outside of the hospital), the patient reported he talking with his brother who was agreeable to having the patient return to his home for tonight, and that he was motivated to pay his court fine today; in addition to transferring his belongings from his brother's home to a storage facility. Patient expressed desire to contine calling 211 to seek more perminent housing placement, and also to continue contacting rehabs which Bailee Rodas LCSW had referred the patient to during inpatient stay. Patient was future-oriented to follow-up with [facility] scheduled appointments for group/individual therapies and medication management. He denied auditory and visual hallucinations. There was no evidence of paranoia or laz delusions. Thought process was linear and goal-directed. Thought content was appropriate. Cognition was grossly intact. He reported feeling safe and ready for discharge. Patient was able to verbalize a safety plan to call 211/911/go to nearest emergency department in the event of feeling unsafe, or in the event of an emergency. Reviewed with the patient that VPA level resulted subtherapuetic again this morning (49.3ug/mL), despite increase in Depakote dose. Recommended increasing the patient's depakote dose on discharge, however patient refused and insisted he would follow-up with Dr. Ring for scheduled [facility] medication management appointment. Patient requested to be switched back to Depakote ER from Depakene, as he strongly disliked liquid formulation and had not verbalized this before to this poem writer. This poem writer switched Depakene 750mg from twice a day to Depakote ER 1500mg at bedtime. Patient was in favor of change. Patient was not agreeable to increasing Depakote ER to 2000mg at bedtime on discharge. Patient denied untoward medication effects and was agreeable to continue taking medications post-discharge. PLAN: 1. Discharge today to brother's home and call 211 for retirement intake. 2. Patient to follow-up with [facility] appointments: Group therapy on at 10:30AM; individual therapy with clinician Camilo Bell on 01/04/17 at 10am; Dr. Ring for medication management on 01/10/17 at 12:30PM. 3. Patient provided with contact information on discharge instructions for [facility] and [facility], where he was referred to during inaptient hospitalization. 4. All discharge prescriptions were called into [facility] pharmacy in [place] (# [phone]). Patient verbalized understanding. 5. Abstain from alcohol, attend AA meetings and obtain a sponsor for support in sobriety. 6. In the event of an emergency, call [phone]/go to nearest emergency department. Patient verbalized understanding of all instruction.
[2016-12-29 10:14] VITALS: BP 148/90
[2016-12-29] MEDS ORDERED: PRAVASTATIN SOD20 M2 PO (10:25)
[2016-12-29] MEDS ORDERED: DIVALPROEX SOD500 M3 PO (10:29)
[2016-12-29] MEDS ORDERED: Olanzapine PO (10:30)
[2016-12-29] MEDS ORDERED: ONE DAILY MULT1 EAC2 PO (10:30)
== END 2016-12-29 11:20 | DRG 750 ==
LOC: ENRESERVDT → ENRESERVTM → ERH 01:08 → ERHI 12-20 11:33 → CP SOUTH 12-20 11:33 → ENPENDDIS 12-20 11:33 → CP SOUTH 12-20 14:06
PROVIDERS: Pediatrics; Psychiatry & Neurology Psychiatry; ADMIT Psychiatry & Neurology Psychiatry
DX: F25.9 Schizoaffective disorder, unspecified (principal); F10.10 Alcohol abuse, uncomplicated; E78.00 Pure hypercholesterolemia, unspecified
CPT/HCPCS: 36415; 80307; 93005; 93010; 96372; G0463; G0480; J1200; J1630; J3490

== ENCOUNTER 2017-01-04 20:53 | Emergency (ER) | payer OTHER ==
[~2017-01-04 20:53] MED LIST changes: +DIVALPROEX SOD500 M3 PO; +HYDROXYZINE HCL PO; +HYDROXYZINE PAM50 M1 PO; +OLANZAPINE20 M1 PO; +ONE DAILY MULT1 EAC2 PO; +Olanzapine PO
[2017-01-04] MEDS ORDERED: HYDROXYZINE HCL50 M1 PO (21:29)
[2017-01-04] MEDS ORDERED: OLANZAPINE20 M1 PO (21:30)
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
[2017-01-04 21:51] LABS: ABSOLUTE BASOPHIL COUNT 0 /CUMM (0.0-0.2); ABSOLUTE EOSINOPHIL COUNT 0 /CUMM (0.0-0.7); ABSOLUTE GRANULOCYTE CT 4.6 /CUMM (1.4-6.5); ABSOLUTE LYMPH COUNT 1.9 /CUMM (1.2-3.4); ABSOLUTE MONOCYTE COUNT 0.5 /CUMM (0.10-0.60); BASOPHIL % 0.5 % (0.0-2.0); EOSINOPHIL % 0.4 % (0-5); GRANULOCYTE % 65.3 % (42.2-75.2); HEMATOCRIT 40.3 % (42-52); MEAN CORPUSCULAR HGB CONC 34.5 G/DL (33.0-37.0); MEAN CORPUSCULAR VOLUME 95.6 FL (80.0-94.0); MEAN PLATELET VOLUME 6.4 FL (7.4-10.4); PLATELET COUNT 322 /CUMM (130-400); RBC DISTRIBUTION WIDTH 13.4 % (11.5-14.5); RED BLOOD CELL CT 4.21 /CUMM (4.70-6.10); WHITE BLOOD CELL COUNT 7.1 /CUMM (4.8-10.8)
--- NOTE | 2017-01-05 08:39 | ED PSYCH CRISIS CONSULTATION ---
See Addendum Crisis Consult Basic Assessment Date of Consult: 01/05/17 Responsible Person/Accompanied By: self Insurance Authorization: Insurance #1: Insurance name: [employer] Phone number: Policy number: [id number] Group number: Authorization number: ED Provider: Patient's ED Provider: JOSÉ ROSALES MD Primary Care Physician: Patient's PCP: UNKNOWN PCP's Phone Number: Current Psychiatrist: [facility] Chief Complaint: Psychiatric Related Complaint Patient's Quote: "I just want to end it." Present Illness: Pt is a 51yo male who was brought to the ED after his brother called 911 because pt was expressing suicidal ideation. Pt is well know to [facility] with multiple previous inpt psych admits to [facility] for schizoaffective disorder, alcohol use, and SI. Pt reports that he relapsed on alcohol yesterday and drank about 6 beers ( BAL 286 at 21:44 on 01/04/17). Pt had been staying with his brother since his discharge from [facility] on 12/29/16, but his brother locked him out 3 days in a row, so pt has not been able to take his medications. Pt and his brother got into an argument yesterday and pt expressed suicidal thoughts. Pt reports that when his brother locked him out of the home for the past 3 days that he has been staying in a tent outdoors. Pt presents and tearful and severely depressed expressing feeling of hopelessness, helplessness, and worthlessness. Pt identifies several ways he has been thinking about ending his life including, overdosing, cutting his wrists, or hanging himself. "I just want to end it. maybe I would be happy then if I was with my parents. I just want to join them." (pt's parents are .) Pt denies any current auditory hallucinations but has a hx of such. Case reviewed with Dr. Humphries of Psychiatry and pt required inpt psych tx. There are currently no beds available on [facility], so a bed search is being done. Patient's Address: [address] [place] [address] Other Phone Number: Who Do You Live With? Patient/Self Family/Informants Interviewed: voice messages left for pt's michelle Sharif and for Rhea [facility] ext [phone] Allergies - Coded Allergies: Penicillins (HIVES 01/04/17) Current Medications - Scheduled Medications Divalproex Sodium (Divalproex Sodium ER) 500 MG TAB.ER.24H 1,500 MG PO AT BEDTIME mood stabilization #42 TAB Prescribed by JORDAN DAMIAN APRN on 12/29/16 Hydroxyzine HCl 50 MG TABLET 100 MG PO QPM SLEEP (Reported) Entered as Reported by CORTEZ RUSSELL on 01/04/17 212 Multivitamin (One Daily Multivitamin) 1 EACH TABLET 1 TAB PO DAILY VITAMIN SUPPORT #14 TAB Prescribed by JORDAN DAMIAN APRN on 12/29/16 Olanzapine 20 MG TABLET 1 TAB PO QPM SLEEP #30 (Reported) Entered as Reported by CORTEZ RUSSELL on 01/04/172129 Pravastatin Sodium 20 MG TABLET 20 MG PO 1700 high cholesterol #14 TAB Prescribed by JORDAN DAMIAN APRN on 12/29/16 Laboratory Results: Laboratory Tests 01/04/172143: Anion Gap 14, Estimated GFR > 60, BUN/Creatinine Ratio 12.0, Glucose 96, Calcium 8.7, Magnesium 2.0, Total Bilirubin 0.6, AST 27, ALT 45, Alkaline Phosphatase 59 , Total Protein 7.4, Albumin 4.2, Globulin 3.2, Albumin/Globulin Ratio 1.3, Lipase 90, CBC w Diff NO MAN DIFF REQ, RBC 4.21 L, MCV 95.6 H, MCH 33.0 H, RDW 13.4, MPV 6.4 L, Gran % 65.3, Lymphocytes % 26.9, Monocytes % 6.9, Eosinophils % 0.4, Basophils % 0.5, Absolute Granulocytes 4.6, Absolute Lymphocytes 1.9, Absolute Monocytes 0.5, Absolute Eosinophils 0, Absolute Basophils 0, PUBS MCHC 34.5, Serum Alcohol 286.0 01/04/172130: Urine Opiates Screen < 100.00, Methadone Screen < 40, Barbiturate Screen < 60, Ur Phencyclidine Scrn < 6.00, Amphetamines Screen < 100, U Benzodiazepines Scrn < 85, Urine Cocaine Screen < 50, Urine Cannabis Screen < 5.00 (BOUCHRA ARCINIEGA LCSW) Past History Past Medical History Neurological: NONE EENT: NONE Cardiovascular: NONE Respiratory: NONE Gastrointestinal: GERD Hepatic: NONE Renal: NONE Musculoskeletal: chronic back pain Psychiatric: alcohol dependence, anxiety, bipolar disease, depression, schizo affective disorder Endocrine: NONE Blood Disorders: NONE Cancer(s): NONE 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 Pt is asking for help at present. Physical Limitations (Interventions): None identified. Psychiatric Treatment History Psych Treatment Psychiatric Treatment Yes Inpatient Treatment Yes Outpatient Treatment Yes Location of Treatment [facility] Reason for Treatment Schizoaffective Dates of Treatment multiple Response to Treatment variable Diagnosis by History: Unspecified Schizophrenia Alcohol Use D/O, severe schizoaffective Substance Use/Abuse History Drug Use/Abuse Substances Used/Abused Yes Substance Used/Abused Alcohol First Use pt reports an extensive hx Last Used last night How much used/taken 6 beers How often daily For how long pt reports and extensive hx Route of use po Substance Abuse Treatment Substance Abuse Treatment Past Substance Abuse TX Yes Inpatient Treatment Yes Outpatient Treatment Yes Location of Treatment [facility] Reason for Treatment alcohol Dates of Treatment multiple Response to Treatment variable (SUZE VEGA,BOUCHRA) Current Mental Status Mental Status Orientation: Person, Place, Situation Affect: Depressed, Hopeless, Sad Speech: Soft Neuro-vegetative: Anhedonia, Appetite Decreased, Energy Decreased, Helpless, Loss of Interest, Sleep Disturbance Appearance Appearance- Dress/Hygiene: unkempt disheveled Behaviors Thought Process: WNL Thought Content: WNL Memory: WNL Insight: WNL SI/HI Risk Assessment Past Suicidal Ideation/Attempts Yes Current Suicidal Ideation/Att Yes Past Homicidal Ideation/Att: No Current Homicidal Ideation/Attempts No Degree of Intent: Plan, States Intent Danger To: Self Risk Factors: access to lethal means, high anxiety/distress, history of suicide atmpts, SA/MH hospitalized, substance abuse, isolate/no social support, poor impulse control, lives alone, male, limited support Lethality Ratin (most severe) PTSD Checklist PTSD Done? patient declined ED Management Sitter: Yes Restraints: No (BOUCHRA ARCINIEGA LCSW) DSM5/PS Stressors/Medical Prob Diagnosis' (DSM 5, Stressors, Medical): Schizoaffective depressed type F25.9, alcohol use d/o [id number] Current GAF: 25 Comments: Homelessess (SUZE VEGA,BOUCHRA) Departure Disposition Psych Medical Clearance Date: 01/05/17 Medically Cleared at: 0800 Time Started: 0800 Time Ended: 829 Psychiatrist Consulted: Shai Humphries MD Date Disposition Established: 01/05/17 Time Disposition Established: 829 Plan for Disposition - Modality: Inpatient Psychiatry Facility: [facility] Rationale for Disposition: safety and stabilization of sx Type of IP Admission: Voluntary Referrals UNKNOWN (PCP/Family) (BOUCHRA ARCINIEGA LCSW) Disposition Plan for Disposition - Modality: Inpatient Psychiatry (Pt is going to [facility] [place] (SHAI HUMPHRIES MD)
[2017-01-05 17:06] VITALS: BP 132/85
== END 2017-01-05 17:08 | disposition other institution (70) ==
LOC: ERH 20:53
PROVIDERS: Emergency Medicine
DX: F32.9 Major depressive disorder, single episode, unspecified (principal); F10.10 Alcohol abuse, uncomplicated
CPT/HCPCS: 80307; G0463; G0480

== ENCOUNTER 2018-03-25 06:47 | Inpatient (IN) | payer OTHER ==
[~2018-03-25] VITALS: Ht 180.3 cm; Wt 95.3 kg
[~2018-03-25 06:47] MED LIST changes: +DEPAKOTE ER500 M1 PO; +EFFEXOR XR75 M1 PO; +MELOXICAM7.5 M1 PO; +NICORELIEF2 MG PO; +PERCOCET 5-3251 EACH PO
[2018-03-25 08:09] LABS: ABSOLUTE BASOPHIL COUNT 0 /CUMM (0.0-0.2); ABSOLUTE EOSINOPHIL COUNT 0.1 /CUMM (0.0-0.7); ABSOLUTE GRANULOCYTE CT 3.6 /CUMM (1.4-6.5); ABSOLUTE LYMPH COUNT 1.3 /CUMM (1.2-3.4); ABSOLUTE MONOCYTE COUNT 0.5 /CUMM (0.10-0.60); BASOPHIL % 0.2 % (0.0-2.0); GRANULOCYTE % 66.6 % (42.2-75.2); HEMATOCRIT 48.5 % (42-52); MEAN CORPUSCULAR HGB 32.8 PG (27.0-31.0); MEAN CORPUSCULAR HGB CONC 33.8 G/DL (33.0-37.0); MEAN CORPUSCULAR VOLUME 97.2 FL (80.0-94.0); MEAN PLATELET VOLUME 7.3 FL (7.4-10.4); PLATELET COUNT 337 /CUMM (130-400); RED BLOOD CELL CT 4.99 /CUMM (4.70-6.10); WHITE BLOOD CELL COUNT 5.4 /CUMM (4.8-10.8)
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
[2018-03-25 12:33] VITALS: BP 130/73
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
[2018-03-25 15:00] VITALS: BP 121/75
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
[2018-03-25 17:15] VITALS: BP 140/87
[2018-03-25 19:50] VITALS: BP 121/77
[2018-03-26 08:32] VITALS: BP 125/73
[2018-03-26 12:28] VITALS: BP 130/72
--- NOTE | 2018-03-26 15:57 | History & Physical ---
General Information and HPI MD Statement: I have seen and personally examined MELIA HERNADEZ and documented this H&P. The patient is a 52 year old M who presented with a patient stated chief complaint of suicidal ideations Source of Information: patient, old records Exam Limitations: no limitations History of Present Illness: 52 year old male who presents in the ED with suicidal ideation. Pt reports that he has had suicidal thoughts for the past week or so, but acted on them last night. Pt reports he was given about $100 worth of crack cocaine last night and he smoked all of it in the hopes that he would have a heart attack and . Allergies/Medications Allergies: Coded Allergies: Penicillins (HIVES 01/04/17) Home Med list Divalproex Sodium (Depakote ER) 500 MG TAB.ER.24H 3 TAB PO QPM mood stabilization Take 3 tabs (1,500mg) po nightly. Hydroxyzine Hydrochloride (Atarax) 50 MG TABLET 100 MG PO QPM insomnia Take 2 tab (100mg) po QHS. Olanzapine 20 MG TABLET 1 TAB PO QPM mood stability/clear thoughts Take 1 tab po nightly. 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 Brother Services at Home: None Primary Language: Kuwaiti ETOH Use: alcoholic Illicit Drug Use: cocaine Functional Ability ADLs Independent: dressing, eating, toileting, bathing. Ambulation: independent IADLs Independent: shopping, housework, finances, food prep, telephone, transportation , medication admin. Employment History Employment Unemployed Profession/Employer Pt reports he worked in a [employer] in 2001 Review of Systems Review of Systems Constitutional: Denies: no symptoms. EENTM: Denies: no symptoms. Cardiovascular: Denies: no symptoms. Respiratory: Denies: no symptoms. GI: Denies: no symptoms. Genitourinary: Denies: no symptoms. Musculoskeletal: Denies: no symptoms. Skin: Denies: no symptoms. Neurological/Psychological: Reports: see HPI. Hematologic/Endocrine: Denies: no symptoms. Immunologic/Allergic: Denies: no symptoms. All Other Systems: Reviewed and Negative Exam & Diagnostic Data Last 24 Hrs of Vital Signs/I&O Vital Signs Date Time Temp Pulse Resp B/P B/P Pulse O2 O2 Flow FiO2 Mean Ox Delivery Rate 03/26 1228 66 130/72 03/26 0832 96.0 60 125/73 03/25 1950 97.1 64 121/77 03/25 1715 75 140/87 Intake & Output 03/26 1600 03/26 0800 03/26 0000 Intake Total Output Total Balance Patient 95.254 kg Weight Physical Exam General Appearance Alert, Oriented X3, Cooperative, No Acute Distress Skin No Rashes, No Breakdown HEENT Atraumatic, PERRLA Neck Supple, No JVD, No thryomegaly Cardiovascular Regular Rate, Normal S1, Normal S2 Lungs Clear to Auscultation, Normal Air Movement Abdomen Normal Bowel Sounds, Soft, No Tenderness Neurological Exam Findings: Normal Gait, Normal Speech, Cranial Nerves 3-12 NL Cranial Nerves II through XII: intact Assessment/Plan Assessment: Cocaine use Suicidal ideations As Ranked By This Provider Problem List: 1. Suicidal ideations 2. Cocaine abuse Miscellaneous Miscellaneous Documentation Attending Case Discussed With: Shai Humphries MD Primary Care Physician: Shweta Womack APRN Patient sees these Specialists none Level of Patient Care: JACKIE Alfaro Attending MD Review Statement Attending Statement Attending MD Statement: examined this patient, reviewed EMR data (avail), discussed with nursing Attending Assessment/Plan: Patient with cocaine use and suicidal ideations [facility]. He denes chest pain, headache or shortness of breath. Chetna on board. Case management consult for dc planning.
[2018-03-26 16:01] VITALS: BP 129/67
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
[2018-03-26 19:49] VITALS: BP 121/72
[2018-03-27 07:53] VITALS: BP 131/72
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
[2018-03-27 12:09] VITALS: BP 121/75
[2018-03-27 15:36] VITALS: BP 121/76
--- NOTE | 2018-03-27 15:49 | CP SOUTH PROGRESS NOTE PSYCH ---
Psych (Inpt) Progress Note Progress Note Include the following elements, when applicable: Involvement in the active treatment of the patient with behavioral observations of the patient and the patient's response to the treatment. Review of the ongoing treatment process in the context of the treatment plan. Indication of how multi-disciplinary staff members are carrying out the treatment plan. Plans for future interventions and recommendations for revision of the treatment plan. Liaison with other physicians/providers. Progress Note: Case and treatment plan discussed in team meeting. Staff reports that the patient is reporting suicidal ideation. Described as isolative, flat, depressed and very quiet. He went to planning meeting. Patient seen at 11:51 a.m. He is dressesd in blue paper scrubs. He was in group prior to meeting with me in office. Feels kind of fuzzy today and he feels it could be due to acclimating to his medications. States his medications are making him tired. Appears awake and alert. Reports he is working on rehab applications. Affect is calm and blunted. Mood is described as kind of depressed right now. Rates sad mood about 8/10 and anxiety about 5/10. Feels hopeless and helpless. Denies feeling worthless. Feels guilty for letting himself down, for not being successful in staying sober. Reports suicidal ideation continues unchanged. Gives a safety promise for here. Denies homicidal ideation. Denies hearing voices today. Denies having visual hallucinations today. Denies paranoid ideation. Reports he slept a couple of hours here and there but not that well really. Appetite is fair. Energy is kind of low. Tolerating medications well, without complaint. IMPRESSION: Slow progress. Continue present treatment plan. Continues to require inpatient level of care in light of ongoing suicidal ideation.
[2018-03-27 20:07] VITALS: BP 139/75
[2018-03-28 07:42] VITALS: BP 135/78
--- NOTE | 2018-03-28 11:00 | SOCIAL WORKER PROG NOTE PSYCH ---
Social Work Progress Note Progress Note Called [facility] and left messages about following up on Darek's referral. Darek was sleeping at 10:40am. Woke him up to meet. He got up without hesitation and came to meet with me. Appeared pleasant and calm. Reported sleeping well last night. Says he feels his meds are kicking in and causing him to feel tired. He reported that his landlord called here last night and that all is well with his living situation. He was relieved to hear that. If he can 't get into a rehab he is open to returning to his rented room. I let him know that [facility] has closed him for clinical services because he hadn't been seen in awhile. He was open to being rereferred. Darek was also open to signing another [facility] for the [facility]. Darek abruptly left our meeting to go to the bathroom, so I didn't get to discuss much else with him today.
[2018-03-28 12:22] VITALS: BP 137/84
--- NOTE | 2018-03-28 14:49 | SOCIAL WORKER PROG NOTE PSYCH ---
Social Work Progress Note Progress Note MELIA HERNADEZ [id number] 1965 MELIA HERNADEZ [id number] Pended Authorization # Client Authorization # Type of Request [id number] CONCURRENT Date of Admission/ Start of Services Requested From Submission Date 03/25/2018 03/28/2018 03/28/2018
--- NOTE | 2018-03-28 15:10 | CP SOUTH PROGRESS NOTE PSYCH ---
Psych (Inpt) Progress Note Progress Note Include the following elements, when applicable: Involvement in the active treatment of the patient with behavioral observations of the patient and the patient's response to the treatment. Review of the ongoing treatment process in the context of the treatment plan. Indication of how multi-disciplinary staff members are carrying out the treatment plan. Plans for future interventions and recommendations for revision of the treatment plan. Liaison with other physicians/providers. Progress Note: Case and treatment plan discussed in team meeting. Staff reports that the patient is denying suicidal ideation. Attended a lot of groups yesterday. Noted to be laughing and smiling. Appropriate. Motivated to go to a rehab. He needs a PPD if one was not done recently. Patient seen at 1:15 PM. Reports he was napping while waiting for group. Depakote level is therapeutic at 62.6. Feels a little groggy but states that's about it right now. Affect is calm and blunted. Reports mood is a little depressed but not that much. Rates sad mood about 6/10 and anxiety about 4/10. Denies feeling hopeless. Feels helpless. Denies feeling worthless or guilty. Reports suicidal ideation but states it is a little better. He gives a safety promise for here. Denies homicidal ideation. Denies auditory and visual hallucinations. Reports he last had auditory and visual hallucinations a few days ago. Denies paranoid ideation. Reports he slept better. Appetite is average. Energy is kind of low. Tolerating medications well, without complaint. IMPRESSION: Slow progress. Continue present treatment plan.
[2018-03-28 15:47] VITALS: BP 114/80
[2018-03-28 20:06] VITALS: BP 133/70
[2018-03-29 07:53] VITALS: BP 136/93
--- NOTE | 2018-03-29 09:00 | SOCIAL WORKER PROG NOTE PSYCH ---
See Addendum Social Work Progress Note Progress Note Darek ate breakfast. Met with me after eating. He continues to report some fatigue and grogginess. Getting adjusted to medications. Reports some dry mouth, but no other side effects. I let him know that [facility] gave him an intake for 04/03 at 9:30am. Asked if he was interested in their IOP? He said he wasn't. He doesn't see himself being able to get there regularly. Asked how his thoughts were? Denies active SI with plan. Occasional thoughts. He is still interested in pursuing rehab. Said he gave [facility] a call yesterday and they told him that he wasn't meeting their criteria. Encouraged him to continue to follow up with [facility] and [facility]. Asked if he felt safe to go home in the next couple days? He said he'd see. Told him we had him down to d/c by Tuesday. Talked about continuing to go to AA meetings at the [facility] and avoiding people that are bad influences. He feels generally safe where he lives. Encouraged him to get to some groups today. Called and left a message with the admission's coordinator at [facility]. She returned the call and scheduled a screening with Darek for 10am tomorrow. She would like him to call her.
[2018-03-29 12:22] VITALS: BP 122/76
--- NOTE | 2018-03-29 14:44 | CP SOUTH PROGRESS NOTE PSYCH ---
Psych (Inpt) Progress Note Progress Note Include the following elements, when applicable: Involvement in the active treatment of the patient with behavioral observations of the patient and the patient's response to the treatment. Review of the ongoing treatment process in the context of the treatment plan. Indication of how multi-disciplinary staff members are carrying out the treatment plan. Plans for future interventions and recommendations for revision of the treatment plan. Liaison with other physicians/providers. Progress Note: Case and treatment plan discussed in team meeting. Staff reports that the patient commented it was too early for him to tell if he felt suicidal. He stopped going to groups. Appearing more depressed. Seen at 2:00 PM. He was resting in bed but got up to meet with me in the office. Reports he is trying to get rid of a drilling headache. Affect is calm and blunted. States he knows that the medications are starting to get in his system because he feels a little numbness and medications are slowing him down a little bit, but he is pleased about it. Appears awake and alert. He is starting to become eager for discharge out of fear of losing his apartment. Rates mood probably 7/10 on a scale of 1-10 with 10 being best. Rates sad mood 5/10 and anxiety 5/10 on a scale from 0-10 with 10 being worst. Denies feeling hopeless, helpless, worthless or guilty. Reports he has suicidal ideation "maybe," and it is improving. He gives a safety promise for here. Denies homicidal ideation. Denies auditory and visual hallucinations. Regarding paranoia, he responded "I don't know." Describes sleep as fair and appetite as good. Describes energy as kind of low. Patient anticipates discharge on Tuesday. IMPRESSION: Slow progress. Continue present treatment plan.
[2018-03-29 15:59] VITALS: BP 131/74
[2018-03-29 19:08] VITALS: BP 133/67
[2018-03-30 07:55] VITALS: BP 130/78
--- NOTE | 2018-03-30 10:27 | SOCIAL WORKER PROG NOTE PSYCH ---
Social Work Progress Note Progress Note Woke Darek up from sleeping at 10am. He got up to meet when prompted. He reported that he was having some difficulties last night with negative thoughts/ hearing voices that were telling him to kill himself. He denies experiencing those voices today. Reports he is safe for the moment, but doesn't like experiencing these moments when he has the voices, because he says he doesn't know how he will react. Often isolates when he is going through that. Encouraged him to reach out to supports and not isolate in his room. Encouraged him to go to group today. Talked about what he has at home for food for when he discharges. He said he has food and has some food stamps left. He is also aware of which food [place] he can go to. I asked if he needed money for anything else right now? He said only his phone, which got turned off last month. He pays $43 a month. I reminded him that he has an intake at [facility] Tuesday and that our goal was to discharge Tuesday. He looked unsure if he would be ready to d/c and asked if he could go Tuesday morning before his appt. I told him that I didn't think that was possible, but we would assess how he continues to do and he'll speak with the doctor.
[2018-03-30 12:10] VITALS: BP 129/75
--- NOTE | 2018-03-30 14:14 | CP SOUTH PROGRESS NOTE PSYCH ---
Psych (Inpt) Progress Note Progress Note Include the following elements, when applicable: Involvement in the active treatment of the patient with behavioral observations of the patient and the patient's response to the treatment. Review of the ongoing treatment process in the context of the treatment plan. Indication of how multi-disciplinary staff members are carrying out the treatment plan. Plans for future interventions and recommendations for revision of the treatment plan. Liaison with other physicians/providers. Progress Note: Case and treatment plan discussed in team meeting. Staff reports that the patient has suicidal ideation without plan. Refusing groups. Isolative. Feels safe here. Patient is scheduled to have a [facility] appointment on Tuesday. Patient seen at 10:33 AM. He was in group prior to meeting with me in office. Reports he is kind of struggling a little bit. States he awoke at midnight and between 1 and 1:30 AM, he heard voices and this was really irritating to him. He was hearing command auditory hallucinations to hurt himself. Reports this was frustrating. He agrees to increase olanzapine dose to 15 mg at bedtime. Patient is not sure if she will be ready for discharge tomorrow. Affect is calm and blunted. Rates sad mood 5/10 and anxiety about 6/10. Denies feeling hopeless or guilty. Does feel helpless and worthless. When asked about suicidal ideation, he responded "I'm in the middle on that one." Gives a safety promise for here. Denies homicidal ideation. Denies having auditory hallucinations now. Denies visual hallucinations now. Denies paranoid ideation. Sleep: middle of the night awakening, as above. Appetite: good. Energy: low. Tolerating medications well. He believes that they slow him down a little bit so that he is not as hyped-up and racing thoughts have slowed down a bit. He is pleased about that. IMPRESSION: Slow progress. Continue present treatment plan. Monitor response to increase in olanzapine dose as above. We will assess tomorrow for discharge-readiness. It is curious that shortly after admission, the patient strongly advocated to go to a rehab. Now he is advocating return to home because he is afraid of losing his apartment.
[2018-03-30 16:22] VITALS: BP 125/88
[2018-03-30 19:48] VITALS: BP 124/71
[2018-03-31 07:53] VITALS: BP 124/80
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
[2018-03-31 12:04] VITALS: BP 130/79
--- NOTE | 2018-03-31 13:32 | SOCIAL WORKER PROG NOTE PSYCH ---
Social Work Progress Note Progress Note Determination Status: PENDED The services requested require additional review. You will be contacted regarding the status of this request if further information is needed. An authorization decision will be made within the required timeframes and details of that decision may be found under the member's authorization history. Member Name Member ID Member Subscriber Name Subscriber ID MELIA HERNADEZ [id number] 1965 MELIA HERNADEZ [id number] Pended Authorization # Client Authorization # Type of Request [id number] CONCURRENT Date of Admission/ Start of Services Requested From Submission Date 03/25/2018 03/31/2018 03/31/2018 Level of Service Type of Service Level of Care Type of Care INPATIENT/[facility]IENT [facility] Reason Code P77 Provider Name & Address Provider ID Provider Alternate ID NPI # for Authorization SHEREEN VAZQUEZ [address] [place] [id number] N/A
[2018-03-31 15:33] VITALS: BP 132/74
--- NOTE | 2018-03-31 15:56 | CP SOUTH PROGRESS NOTE PSYCH ---
Psych (Inpt) Progress Note Progress Note Include the following elements, when applicable: Involvement in the active treatment of the patient with behavioral observations of the patient and the patient's response to the treatment. Review of the ongoing treatment process in the context of the treatment plan. Indication of how multi-disciplinary staff members are carrying out the treatment plan. Plans for future interventions and recommendations for revision of the treatment plan. Liaison with other physicians/providers. Progress Note: Case and treatment plan discussed in team meeting. Staff reports that the patient is reporting SI and AH. Said he is not ready to go. Patient seen at 10:42 a.m. with medical student. Patient was in group prior to meeting with us in office. States he is here because of AH, VH and SI, was off his medications for a few months and was using crack cocaine. Reports he was up last night from 1-3 am and that drove him crazy. Denies having AH at this moment. Denies VH. Affect is calm and blunted. Mood is "kind of low." Sad ~8 /10. Anxiety ~5/10. Feels hopeless, helpless and worthless. Denies feeling guilty. Reports SI: "they're still going on in my mind." Denies HI. Reports vague PI without specifics. Sleep: intermittent. Appetite: good. Energy: kind of low. Appears awake and alert. Hopes for discharge on Tuesday. Tolerating medications and finds them helpful, stating he is less hyper. Agrees to increase Zyprexa dose to 20 mg qhs. IMPRESSION: Slow progress. Continue present treatment plan. Monitor for SI and psychotic symptoms.
[2018-03-31 20:04] VITALS: BP 121/69
[2018-04-01 07:42] VITALS: BP 117/90
--- NOTE | 2018-04-01 08:41 | CP SOUTH PROGRESS NOTE PSYCH ---
Psych (Inpt) Progress Note Progress Note I reviewed Dr. Humphries's note. MSE: I interviewed patient in his room. In be, awake, "resting" He denied mental distress and did not have physical complaints. Denies having hallucinations today. Affect was blunted. Mood was "okay" He reported he is not feeling hopeless today, he denied wishing or thinking of suicide. He said he did have thoughts of suicide yesterday. Denies HI. Reports vague PI without specifics. Hopes for discharge on Tuesday. Tolerating increase of Zyprexa. IMPRESSION: Slow progress. Plan Update: Continue present treatment plan. symptoms.
[2018-04-01 11:58] VITALS: BP 128/74
[2018-04-01 16:00] VITALS: BP 128/78
[2018-04-01 19:55] VITALS: BP 135/92
[2018-04-02 07:41] VITALS: BP 138/76
--- NOTE | 2018-04-02 08:53 | CP SOUTH PROGRESS NOTE PSYCH ---
Psych (Inpt) Progress Note Progress Note Vital Signs Date Time Temp Pulse B/P 04/02 0741 96.1 73 138/76 04/01 195 97.9 67 135/92 Mental Status Examination: Darek was up and about after breakfast. He seemed to be in good spirits. He reported that he slept well last night. He denied feeling overmedicated. He was alert and oriented to time, place, and person. He was calm and cooperative. There were no abnormal movements or abnormal behaviors. He denied feeling depressed or anxious, and did not have any physical complaints. The patient denied hallucinations for the past 7 days, he said the last time he had any hallucinations was last Tuesday-not yesterday but the Tuesday before. He denied feeling hopeless or worthless, he denied wishing or thinking of suicide. He denied having any violent thoughts of violent images in his mind and denied thoughts of homicide. He denied feeling paranoid, and there were no delusions during the interview. He reported that his aftercare plan will be most likely continuing with care, he reported that he was seeing Dr. Ring in [place] office. IMPRESSION: 52-year-old white male who has been on the inpatient psychiatric unit since 03/2018. The he reported that he is showing progress and he reported that the last hallucinations he had where 8 days ago. He is currently denying thoughts of suicide or violence or homicide. Plan Update: Continue the same treatment plan. The patient will be reevaluated by his regular team of psychiatrist and hospital social worker tomorrow.
[2018-04-02 12:05] VITALS: BP 134/74
[2018-04-02 15:41] VITALS: BP 134/72
[2018-04-02 20:00] VITALS: BP 138/79
[2018-04-03 07:28] VITALS: BP 126/79
--- NOTE | 2018-04-03 09:04 | SOCIAL WORKER PROG NOTE PSYCH ---
Social Work Progress Note Progress Note Called Micaela (retail event coordinator at [facility]) and changed Darek's intake to 04/[address] Humphries and I met with Darek together this morning. Darek needed to be prompted out of bed this morning. He reported not having a good weekend, due to voices that were troubling him. Darek was confronted about this, due to having reported not having hallucinations for the past 8 days to the psychiatrist that saw him yesterday. Darek said that was not accurate. He was asked if there was another reason he wanted to be here in the hospital right now? He denied this and said he has a home to go to. He continued to say that he is just waiting until his thoughts are better and he is having difficulty. Talked about the positive things that he has had going for him over the last year ie: getting his Social Security and housing. Encouraged him to get to an AA meeting tonight and to not isolate. Offered VNS services for additional support and help with meds. He refused. He was also offered a referral to [facility] that he refused as well. He was happy to hear that his appt. with [facility] was set up for . Dr. Humphries let him know that he really needed to move forward with d/c today as he has achieved maximum hospital benefit. Reiterated that he was given 2 additional days since we moved his d/c from Tuesday to today. Darek asked to leave tomorrow. He was told that wasn't an option. Darek was not happy with the response and got up and left the office abruptly. He calmed down and apologized for his behavior a few minutes later stating he got up and left because he didn't want to say something he would regret. He said he would be safe to leave today. He was given 2.00 for [address] to get home. Talked about going to [facility].
[2018-04-03] MEDS ORDERED: PRAVASTATIN SOD20 M2 PO (10:15)
[2018-04-03] MEDS ORDERED: OLANZAPINE20 M1 PO (10:15)
[2018-04-03] MEDS ORDERED: DIVALPROEX SOD250 M2 PO (10:15)
[2018-04-03] MEDS ORDERED: ONE DAILY MULT1 EAC2 PO (10:15)
[2018-04-03] MEDS ORDERED: EFFEXOR XR37.5 M1 PO (10:15)
[2018-04-03] MEDS ORDERED: HYDROXYZINE HCL50 M1 PO (10:15)
--- NOTE | 2018-04-03 10:24 | Patient Discharge Instructions ---
Psych Discharge Inst General Discharge Information Reason for Admission: Off medications for a couple of months. Reported to lock up worker he was having suicidal thoughts for the past week or so. Smoked $100 worth of crack, hoping he would have a heart attack and . Put garbage bag around his head to kill himself. Walked to the emergency room and jumped in front of traffic. Experiencing auditory and visual hallucinations. Having trouble sleeping. Psy Discharge Primary Diag+ Schizoaffective disorder Psy Discharge Secondary Diag+ Cocaine use disorder Summary Tests/Major Procedures Lab AST 19 U/L 03/25/18 0750 Amylase 75 U/L 03/25/18 0750 BUN 18 mg/dL 03/25/18 0750 Calcium 9.6 mg/dL 03/25/18 0750 Carbon Dioxide 26 mmol/L 03/25/18 0750 Chloride 103 mmol/L 03/25/18 0750 Cholesterol 225 MG/DL H 08/15/17 0547 Cholesterol/HDL Ratio 7.3 % H 08/15/17 0547 Creatinine 1.3 mg/dL H 03/25/18 0750 Direct Bilirubin 0.4 mg/dL 02/25/16 0725 Estimated GFR 58 ml/min L 03/25/18 0750 Glucose 95 mg/dL 03/25/18 0750 HDL Cholesterol 31 mg/dL L 08/15/17 0547 Hemoglobin A1c 5.3 % 07/11/17 1655 LDL Cholesterol, Calc 171 mg/dL H 08/15/17 0547 Potassium 4.9 mmol/L 03/25/18 0750 Sodium 140 mmol/L 03/25/18 0750 TSH &T3 &Free T4 Intrp 1.860 uIU/mL 03/25/18 0750 Total Bilirubin 1.7 mg/dL H 03/25/18 0750 Triglycerides 119 mg/dL 08/15/17 0547 Hct 48.5 % 03/25/18 0750 Hgb 16.4 G/DL 03/25/18 0750 MCH 32.8 PG H 03/25/18 0750 MCV 97.2 FL H 03/25/18 0750 MPV 7.3 FL L 03/25/18 0750 Plt Count 337 /CUMM 03/25/18 0750 WBC 5.4 /CUMM 03/25/18 0750 Serum Alcohol < 10.0 MG/DL 03/25/18 0750 Urine Cocaine Screen > 1000 NG/ML H 03/25/18 0816 Valproic Acid < 10.0 ug/mL L 03/25/18 0750 Valproic Acid 62.6 ug/mL 03/28/18 0649 Valproic Acid 50.2 ug/mL 04/03/18 0554 EKG 03/25/18 showed sinus rhythm @ 62, minor changes since previous tracing, normal EKG, QT 408, QTc 415. Studies Pending at DC: None. Patient Instructions Contact Information Your Psychiatrist on [facility] was Shai Humphries MD * If you are experiencing an emergency related to this hospitalization, please call [phone] to contact the treating psychiatrist or the psychiatrist-on- call. * To Request a copy of your medical records, please contact the Medical Records Department at [phone]. * To request results of studies pending at the time of discharge, please call [phone]. * Continue your Medications until directed to stop by your Healthcare provider. General Medication Information Please continue to take your new medications and your continued home medications , unless otherwise indicated on your discharge medication list, or unless directed by your MD or TONGUER to stop them. Special Instructions Diet Regular Activity Normal Other Inst/Recommendations Stay away from drugs/alcohol. Please see PCP about labs/EKG. Thank you. - Tobacco Use Treatment Offered Post DC Medications Offered: Not Applicable Post DC Tobacco Treatment Plan: Not Applicable - EtOH/Drug Use D/O Treatment Offered Post DC Medications Offered: Med Not Indicated for D/O Post DC EtOH/SubAbuse [place] Plan: Other SubAbuse/Dual Pgm ([facility]) Program Appt Date: 04/06/18 Program Appt Time: 1400 Metabolic Screening () Not Applicable, patient not on a neuroleptic. OR () Patient on a neuroleptic(s) . Enter below results for Hemoglobin A1C, and lipid panel if obtained during the last 365 days. BMI: 29.300 Blood Pressure: 126/79 Laboratory Results From [facility] (If applicable): [x] Lab Cholesterol 225 MG/DL H 08/15/17 0547 Cholesterol/HDL Ratio 7.3 % H 08/15/17 0547 HDL Cholesterol 31 mg/dL L 08/15/17 0547 Hemoglobin A1c 5.3 % 07/11/17 1655 LDL Cholesterol, Calc 171 mg/dL H 08/15/17 0547 Triglycerides 119 mg/dL 08/15/17 0547 Advance Directives Does the Patient have Medical Advance Directives No/Refused further info Does Pt have Psychiatric Advance Directives? No/Refused further info Does Patient have a Designated Surrogate Decision Maker: No Information About Psychiatric Advance Directives Provided? Refused Discharge Plan Post Hospital Treatment Plan: Returning to home. [facility] [place] 04/06/18 at 2 pm.
--- NOTE | 2018-04-03 15:57 | CP SOUTH PROGRESS NOTE PSYCH ---
Psych (Inpt) Progress Note Progress Note Include the following elements, when applicable: Involvement in the active treatment of the patient with behavioral observations of the patient and the patient's response to the treatment. Review of the ongoing treatment process in the context of the treatment plan. Indication of how multi-disciplinary staff members are carrying out the treatment plan. Plans for future interventions and recommendations for revision of the treatment plan. Liaison with other physicians/providers. Progress Note: Dr. Lao's notes reviewed. Case and treatment plan discussed in team meeting. Staff reports that the patient is ambivalent about suicidal ideation and told staff he would see how it goes. Isolative over the weekend. Has an appointment lined up at [facility] for . Patient seen with social service worker, Bailee, at 9:56 AM. Patient states "the voices were bothering me very terribly." I pointed out to the patient that he has been giving inconsistent reports about voices to different people. Affect is calm and blunted. Reports mood is bad. Reports he thought about cutting himself on the edge of the fish tank and that he does not want to be around. Refusing recommendation for a visiting nurse. Refusing recommendation for IOP. States he has no money with which to relapse. IMPRESSION: The treatment team believes that the patient is malingering and has achieved maximum hospital benefit. He has not demonstrated self-harm while here. Patient is being discharged to home with follow-up at [facility].
--- NOTE | 2018-04-03 16:05 | DISCHARGE SUMMARY REPORT-PSYCH ---
Visit Information Visit Dates/Diagnosis' Admission Date: 03/25/18 Discharge Date: 04/03/18 Reason for Admission: Off medications for a couple of months. Reported to field crop farm worker he was having suicidal thoughts for the past week or so. Smoked $100 worth of crack, hoping he would have a heart attack and . Put garbage bag around his head to kill himself. Walked to the emergency room and jumped in front of traffic. Experiencing auditory and visual hallucinations. Having trouble sleeping. Psy Discharge Primary Diag: Schizoaffective disorder Psy Discharge Secondary Diag: Cocaine use disorder Hospital Course Significant Lab Findings: Lab AST 19 U/L 03/25/18 0750 Amylase 75 U/L 03/25/18 0750 BUN 18 mg/dL 03/25/18 0750 Calcium 9.6 mg/dL 03/25/18 0750 Carbon Dioxide 26 mmol/L 03/25/18 0750 Chloride 103 mmol/L 03/25/18 0750 Cholesterol 225 MG/DL H 08/15/17 0547 Cholesterol/HDL Ratio 7.3 % H 08/15/17 0547 Creatinine 1.3 mg/dL H 03/25/18 0750 Direct Bilirubin 0.4 mg/dL 02/25/16 0725 Estimated GFR 58 ml/min L 03/25/18 0750 Glucose 95 mg/dL 03/25/18 0750 HDL Cholesterol 31 mg/dL L 08/15/17 0547 Hemoglobin A1c 5.3 % 07/11/17 1655 LDL Cholesterol, Calc 171 mg/dL H 08/15/17 0547 Potassium 4.9 mmol/L 03/25/18 0750 Sodium 140 mmol/L 03/25/18 0750 TSH &T3 &Free T4 Intrp 1.860 uIU/mL 03/25/18 0750 Total Bilirubin 1.7 mg/dL H 03/25/18 0750 Triglycerides 119 mg/dL 08/15/17 0547 Hct 48.5 % 03/25/18 0750 Hgb 16.4 G/DL 03/25/18 0750 MCH 32.8 PG H 03/25/18 0750 MCV 97.2 FL H 03/25/18 0750 MPV 7.3 FL L 03/25/18 0750 Plt Count 337 /CUMM 03/25/18 0750 WBC 5.4 /CUMM 03/25/18 0750 Serum Alcohol < 10.0 MG/DL 03/25/18 0750 Urine Cocaine Screen > 1000 NG/ML H 03/25/18 0816 Valproic Acid < 10.0 ug/mL L 03/25/18 0750 Valproic Acid 62.6 ug/mL 03/28/18 0649 Valproic Acid 50.2 ug/mL 04/03/18 0554 EKG 03/25/18 showed sinus rhythm @ 62, minor changes since previous tracing, normal EKG, QT 408, QTc 415. Course Complications: None. Consultations: The patient was seen by Dr. Neal Rosario for admission H&P. Per his note of : "Attending Assessment/Plan: Patient with cocaine use and suicidal ideations is admitted to [facility]. He denes chest pain, headache or shortness of breath. Chetna on board. Case management consult for dc planning." Allergies: Coded Allergies: Penicillins (HIVES 01/04/17) Hospital Course/TX Response: The patient was monitored on the unit for safety, psychosis and mood disorder. He participated in multi-modal treatments on the unit. He was restarted on Zyprexa, Depakote, Vistaril, pravastatin and Effexor. The patient seemed invested in a protracted inpatient stay for unclear reasons. He gave inconsistent reports to staff about symptoms. Progress note from date of discharge, 04/03/18: Dr. Lao's notes reviewed. Case and treatment plan discussed in team meeting. Staff reports that the patient is ambivalent about suicidal ideation and told staff he would see how it goes. Isolative over the weekend. Has an appointment lined up at [facility] for . Patient seen with social service assistant, Bailee, at 9:56 AM. Patient states "the voices were bothering me very terribly." I pointed out to the patient that he has been giving inconsistent reports about voices to different people. Affect is calm and blunted. Reports mood is bad. Reports he thought about cutting himself on the edge of the fish tank and that he does not want to be around. Refusing recommendation for a visiting nurse. Refusing recommendation for IOP. States he has no money with which to relapse. IMPRESSION: The treatment team believes that the patient is malingering and has achieved maximum hospital benefit. He has not demonstrated self-harm while here. Patient is being discharged to home with follow-up at [facility]. Discharge HBIPS - Tobacco Use Treatment Offered Post DC Medications Offered: Not Applicable Post DC Tobacco Treatment Plan: Not Applicable - EtOH/Drug Use D/O Treatment Offered Post DC Medications Offered: Med Not Indicated for D/O Post DC EtOH/SubAbuse TX Plan: Other SubAbuse/Dual Pgm ([facility]) Program Appt Date: 04/06/18 Program Appt Time: 1400 Metabolic Screening - Screen if on a Neuroleptic Medication - Metabolic screening should include: - Blood Pressure, BMI, Glucose or Hgb A1c, & a - Lipid profile from within the past 365 days. Metabolic Screening () Not Applicable, patient not on a neuroleptic. OR () Patient on a neuroleptic(s) . Enter below results for Hemoglobin A1C, and lipid panel if obtained during the last 365 days. BMI: 29.300 Blood Pressure: 126/79 Laboratory Results From [facility] (If applicable): [x] Lab Cholesterol 225 MG/DL H 08/15/17 0547 Cholesterol/HDL Ratio 7.3 % H 08/15/17 0547 HDL Cholesterol 31 mg/dL L 08/15/17 0547 Hemoglobin A1c 5.3 % 07/11/17 1655 LDL Cholesterol, Calc 171 mg/dL H 08/15/17 0547 Triglycerides 119 mg/dL 08/15/17 0547 Discharge Instructions General Discharge Information Multiple Neuroleptics: ([x]) Not Applicable OR Document below three failed attempts at monotherapy, or a plan to taper to monotherapy, or augmentation of Clozapine. () Discharge Diet Regular Discharge Activity Normal DC Disposition: Returning to home. Referrals Ordered Referrals Provider Referral 04/06/18 For Groups: [ Care] [facility] Intake appt. 04/06/18 2:00pm [address] [place] [id number] Prescriptions Stop taking the following medications: Divalproex Sodium (Depakote ER) 500 MG TAB.ER.24H ORAL Every night Qty = 42 Continue taking these medications: Pravastatin Sodium (Pravastatin Sodium) 20 MG TABLET 20 Milligram ORAL 5 PM Qty = 14 Comments: Last Taken:04/02/18 Time:5pm This prescription has been renewed Olanzapine (Olanzapine) 20 MG TABLET 1 Tablet ORAL Every night Qty = 14 Instructions: Take 1 tab po nightly. Comments: Last Taken:04/03/18 Time:9pm This prescription has been renewed Start taking the following new medications: Venlafaxine HCl (Effexor XR) 37.5 MG CAP.ER.24H 1 Capsule ORAL DAILY @8 AM Qty = 14 No Refills Comments: Last Taken:04/03/18 Time:9am Multivitamin (One Daily Multivitamin) 1 EACH TABLET 1 Tablet ORAL DAILY Qty = 14 No Refills Comments: Last Taken:04/03/18 Time:9am Divalproex Sodium (Divalproex Sodium) 250 MG TABLET.DR 1 Tablet ORAL SEE INSTRUCTIONS Qty = 70 No Refills Instructions: Take 2 po qAM and 3 po QHS Comments: Last Taken:04/03/18 Time:10am The following medications have been changed: Old: Hydroxyzine Hydrochloride (Atarax) 50 MG TABLET 100 Milligram ORAL Every night Qty = 28 New: Hydroxyzine Hydrochloride (Atarax) 50 MG TABLET 2 Tablet ORAL Every night Qty = 28 Instructions: Take 2 tab (100mg) po QHS. Comments: Last Taken:04/02/18 Time:10pm Other Inst/Recommendations Stay away from drugs/alcohol. Please see PCP about labs/EKG. Thank you. Studies Pending at Discharge None. Copies To: ROE Gan
--- NOTE | 2018-04-03 16:16 | SOCIAL WORKER PROG NOTE PSYCH ---
Social Work Progress Note Faxed Referral(s) Referred To: [facility] Transition of Care Documents sent: Health Summary Faxed to: Care Fax #: [phone] Faxed by: Bailee Rodas Date faxed: 04/03/18 Time Faxed: [phone]
== END 2018-04-03 11:01 | DRG 750 ==
LOC: ERH 06:47 → ERHI 14:51 → CP SOUTH 14:51 → ENTRNSPT 16:38 → EDTRNSPT 16:45 → EDTRNSPTSTS 16:45 → CP SOUTH 17:00 → CMPTRNSPT 17:11 → CP SOUTH 03-28 20:09
PROVIDERS: Emergency Medicine
DX: F25.9 Schizoaffective disorder, unspecified (principal); F14.90 Cocaine use, unspecified, uncomplicated
CPT/HCPCS: 36415; 80307; 93005; 93010; G0480; J3490

== ENCOUNTER 2018-05-03 16:58 | Emergency (ER) | payer OTHER ==
[~2018-05-03] VITALS: Ht 180.3 cm; Wt 99.8 kg
[~2018-05-03 16:58] MED LIST changes: +DIVALPROEX SOD250 M2 PO; +EFFEXOR XR37.5 M1 PO
[2018-05-03 17:19] VITALS: BP 143/90
[2018-05-03] MEDS ORDERED: HYDROXYZINE HCL50 M1 PO (17:24)
[2018-05-03] MEDS ORDERED: VENLAFAXINE H37.5 M3 PO (17:24)
[2018-05-03] MEDS ORDERED: PRAVACHOL20 M2 PO (17:24)
[2018-05-03] MEDS ORDERED: DIVALPROEX SOD250 M2 PO (17:24)
[2018-05-03] MEDS ORDERED: OLANZAPINE20 M1 PO (17:24)
--- NOTE | 2018-05-03 17:25 | ED GENERAL ADULT ---
History of Present Illness General Chief Complaint: General Adult Stated Complaint: MED REFILL Source: patient Exam Limitations: no limitations Vital Signs & Intake/Output Vital Signs & Intake/Output Vital Signs Date Time Temp Pulse Resp B/P B/P Pulse O2 O2 Flow FiO2 Mean Ox Delivery Rate 05/03 1734 98 Room Air 05/03 1719 98.5 74 18 143/90 97 Room Air Allergies Coded Allergies: Penicillins (HIVES 01/04/17) Reconcile Medications Divalproex Sodium 250 MG TABLET.DR 1 TAB PO AD BIPOLAR Divalproex Sodium 250 MG TABLET.DR 1 TAB PO SEE ADMIN CRITERIA mood swings Take 2 po qAM and 3 po QHS Hydroxyzine Hydrochloride (Atarax) 50 MG TAB 2 TAB PO QPM SLEEP Hydroxyzine Hydrochloride (Atarax) 50 MG TABLET 2 TAB PO QPM insomnia Take 2 tab (100mg) po QHS. Multivitamin (One Daily Multivitamin) 1 EACH TABLET 1 TAB PO DAILY vitamin supplement Olanzapine 20 MG TABLET 1 TAB PO QPM SLEEP Olanzapine 20 MG TABLET 1 TAB PO QPM mood stability/clear thoughts Take 1 tab po nightly. Pravastatin Sodium (Pravachol) 20 MG TABLET 1 TAB PO DAILY HLD Pravastatin Sodium 20 MG TABLET 20 MG PO 1700 high cholesterol Venlafaxine HCl 37.5 MG TABLET 1 TAB PO QAM DEPRESSION Venlafaxine HCl (Effexor XR) 37.5 MG CAP.ER.24H 1 CAP PO 0800 depression Triage Note: PT FROM HOME C/O HERE FOR MED REFILL PER PT. PT STATES HE HAS NO COMPLAINTS ONLY MED REFILL. VSS. VANDANA Read IN TRIAGE FOR EVAL. Triage Nurses Notes Reviewed? yes Onset: Abrupt Duration: day(s): Timing: recent history Injury Environment: home No Modifying Factors: none HPI: 53-year-old male comes in requesting a refill on psychiatric medications. Denies any pain. He is in the process of seeing a new doctor. Denies any suicidal or homicidal deviation. Denies any other associated symptoms. (Charbel Castelan) Past History Travel History Traveled to [place] past 21 day No Medical History Any Pertinent Medical History? 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 No (Charbel Castelan) Review of Systems Review of Systems Constitutional: Reports: no symptoms. EENTM: Reports: no symptoms. Respiratory: Reports: no symptoms. Cardiovascular: Reports: no symptoms. GI: Reports: no symptoms. Genitourinary: Reports: no symptoms. Musculoskeletal: Reports: no symptoms. Skin: Reports: no symptoms. Neurological/Psychological: Reports: no symptoms. Hematologic/Endocrine: Reports: no symptoms. Immunologic/Allergic: Reports: no symptoms. All Other Systems: Reviewed and Negative (Charbel Castelan) Physical Exam Physical Exam General Appearance: well developed/nourished Head: atraumatic Eyes: Bilateral: normal appearance. Ears, Nose, Throat: normal ENT inspection, hearing grossly normal Neck: normal inspection Respiratory: no respiratory distress Back: normal range of motion Extremities: normal inspection Neurologic/Psych: awake, alert, oriented x 3 Skin: intact Core Measures ACS in differential dx? No CVA/TIA Diagnosis: No Sepsis Present: No Sepsis Focused Exam Completed? No (Charbel Castelan) Progress Differential Diagnoses I considered the following diagnoses in my evaluation of the patient: Bipolar, anxiety, depression, Plan of Care: 05/03/2018 6:06:39 PM Patient clinically looks well. Patient is in no apparent distress. Patient is nontoxic-appearing. Patient was provided a refill on the medication. Initial ED EKG: none (Charbel Castelan) Departure Departure Disposition: HOME OR SELF CARE Condition: Stable Clinical Impression Primary Impression: Medication refill Referrals: Shweta Womack APRN (PCP/Family) Additional Instructions: Take medications as prescribed. Follow-up with your psychiatrist. Return if any other concerns worsening symptoms. Please go over all results of today's visit with your primary care doctor. Contact your primary care doctor to let them know you were here in the emergency room. There may be nonspecific findings which may not be related to your visit today here in the emergency room but may require further evaluation and chronic monitoring by your primary care doctor. If you had a laceration today the chance of foreign body always remains. You should follow-up with your primary care doctor for recheck in 3-5 days for a wound check. If you had an x-ray done there is a chance that a fracture could have been missed on initial read and you should follow-up with your primary care doctor for repeat x-rays if symptoms persist. If your blood pressure was elevated here in the emergency room please have rechecked by ruth primary care doctor within the next 48. If you were prescribed a narcotic here in the emergency room or any type of controlled substances you're not allowed to drive while taking this medication or operate any type of heavy machinery. Narcotics can make you feel lightheaded dizziness nausea and can cause constipation. You may need to chicken picker a stool softener. Thank you for choosing [facility] emergency room. Please return to the emergency room immediately if you have any other concerns worsening of symptoms. Departure Forms: Customer Survey General Discharge Information Prescriptions: Current Visit Scripts Olanzapine 1 TAB PO QPM #14 TAB Pravastatin Sodium (Pravachol) 1 TAB PO DAILY #14 TAB Venlafaxine HCl 1 TAB PO QAM #14 TAB Divalproex Sodium 1 TAB PO AD #70 TAB Hydroxyzine Hydrochloride (Atarax) 2 TAB PO QPM #28 TAB (Charbel Castelan) PA/SUPERVISOR POULTRY PROCESSING Co-Sign Statement Statement: ED Attending supervision documentation- [] I saw and evaluated the patient. I have also reviewed all the pertinent lab results and diagnostic results. I agree with the findings and the plan of care as documented in the PA's/SUPERVISOR POULTRY PROCESSING's documentation. [X] I have reviewed the ED Record and agree with the PA's/SUPERVISOR POULTRY PROCESSING's documentation. [] Additions or exceptions (if any) to the PAs/SUPERVISOR POULTRY PROCESSING's note and plan are summarized below: [] (Jordan BOWLING,Bolivar Badillo) Critical Care Note Critical Care Note Critical Care Time: non-applicable (Charbel Castelan)
== END 2018-05-03 17:35 ==
LOC: ERH 16:58
DX: Z76.0 Encounter for issue of repeat prescription (principal)
CPT/HCPCS: 99281

== ENCOUNTER 2018-07-03 14:09 | Emergency (ER) | payer OTHER ==
[~2018-07-03 14:09] MED LIST changes: +PRAVACHOL20 M2 PO; +VENLAFAXINE H37.5 M3 PO
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
[2018-07-03 16:45] LABS: ABSOLUTE BASOPHIL COUNT 0 /CUMM (0.0-0.2); ABSOLUTE EOSINOPHIL COUNT 0 /CUMM (0.0-0.7); ABSOLUTE LYMPH COUNT 1.6 /CUMM (1.2-3.4); ABSOLUTE MONOCYTE COUNT 0.6 /CUMM (0.10-0.60); BASOPHIL % 0.3 % (0.0-2.0); EOSINOPHIL % 0.3 % (0-5); GRANULOCYTE % 72.7 % (42.2-75.2); HEMATOCRIT 42.2 % (42-52); MEAN CORPUSCULAR HGB CONC 33.6 G/DL (33.0-37.0); MEAN PLATELET VOLUME 7.1 FL (7.4-10.4); PLATELET COUNT 375 /CUMM (130-400); RBC DISTRIBUTION WIDTH 13.7 % (11.5-14.5); RED BLOOD CELL CT 4.18 /CUMM (4.70-6.10); WHITE BLOOD CELL COUNT 8.2 /CUMM (4.8-10.8)
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
[2018-07-03 19:36] VITALS: BP 126/87
== END 2018-07-03 19:44 ==
LOC: ERH 14:09
PROVIDERS: Physician Assistant
DX: S80.02XA Contusion of left knee, initial encounter (principal); S60.051A Contusion of right little finger without damage to nail, initial encounter; F10.129 Alcohol abuse with intoxication, unspecified; V18.0XXA Pedal cycle driver injured in noncollision transport accident in nontraffic accident, initial encounter; Y93.55 Activity, bike riding
CPT/HCPCS: 73140-RT; 73562-LT; 80307; G0480

== ENCOUNTER 2018-07-05 17:53 | Emergency (ER) | payer OTHER ==
[~2018-07-05] VITALS: Ht 180.3 cm; Wt 99.8 kg
--- NOTE | 2018-07-05 18:15 | ED PSYCHIATRIC COMPLAINT ---
History of Present Illness General Chief Complaint: Psychiatric Related Complaint Stated Complaint: BIBA +SI Source: patient Exam Limitations: poor historian Vital Signs & Intake/Output Vital Signs & Intake/Output Vital Signs Date Time Temp Pulse Resp B/P B/P Pulse O2 O2 Flow FiO2 Mean Ox Delivery Rate 07/06 1345 98.3 55 20 112/67 97 Room Air 07/06 0802 98.4 60 18 104/62 97 Room Air 07/06 0608 97.1 83 18 100/60 98 07/06 0424 97.0 54 20 97/54 96 Room Air 07/06 0238 97.6 55 16 105/66 96 Room Air 07/05 2257 63 18 121/69 99 07/05 2021 97.6 58 24 116/73 98 Room Air 07/05 1823 99.1 101 17 149/73 98 Room Air 07/05 1809 98 Room Air ED Intake and Output 07/06 0000 07/05 1200 Intake Total Output Total Balance Patient 220 lb Weight Weight Reported by Patient Measurement Method Allergies Coded Allergies: Penicillins (HIVES 01/04/17) Reconcile Medications Divalproex Sodium (Depakote) 500 MG TABLET.DR 2 TAB PO QPM MENTAL HEALTH ( Reported) Hydroxyzine Hydrochloride (Atarax) 50 MG TAB 2 TAB PO QPM SLEEP Multivitamin (One Daily Multivitamin) 1 EACH TABLET 1 TAB PO DAILY vitamin supplement Olanzapine 20 MG TABLET 1 TAB PO QPM SLEEP Pravastatin Sodium (Pravachol) 20 MG TABLET 1 TAB PO DAILY HLD Venlafaxine HCl (Effexor XR) 150 MG CAP.ER.24H 1 CAP PO DAILY MENTAL HEALTH ( Reported) Triage Note: 53 Y/O MALE BIBA FROM HOME FOR EVAL OF SI. PT ARRIVES A/O X 4, SPEAKING CLEARLY WITH NO DISTRESS OR DEFICITS NOTED. PT STATES HE HAS BEEN FEELING SUICIDAL FOR 2 DAYS, STATES HE HAS BEEN ADMITTED TO [place] IN THE PAST AND WOULD LIKE TO GO BACK THERE. DENIES HI, "NOT THIS TIME BUT ITS EARLY". PT DENIES RECENT ALCOHOL OR DRUG USE. WAS A TRAUMA ALERT TO [place] 2 WEEKS AGO (18 DAYS) S/P FALL WITH LACERATION TO FACE - STATES HE HAS NOT HAD ANY ETOH SINCE THAT FALL. PT DENIES PHYSICAL COMPLAINTS. CALM/COOPERATIVE. CAME TO ED VOLUNTARILY. SECURITY GOING THROUGH BELONGINGS AT THIS TIME AWAITING EVAL Triage Nurses Notes Reviewed? yes Onset: Abrupt Duration: unknown duration Timing: unknown HPI: 07/05/18 53-year-old man presents to the emergency department for depression and suicidal ideation. He denies any acute medical conditions. He has a prior history of depression with prior hospitalizations. (Damien Macedo DO) Past History Travel History Traveled to [place] past 21 day No Medical History Any Pertinent Medical History? see below for history Neurological: NONE EENT: NONE Cardiovascular: NONE Respiratory: NONE Gastrointestinal: GERD Hepatic: NONE Renal: NONE Musculoskeletal: chronic back pain Psychiatric: alcohol dependence, anxiety, schizo affective disorder (R/O chronic bipolar disorder), substance abuse (mainly "occasional" cocaine) Endocrine: NONE Blood Disorders: NONE Cancer(s): NONE VALIDATION SPECIALIST/Reproductive: NONE History of MRSA: No History of VRE: No History of CDIFF: No Isolation History: Standard Surgical History Surgical History: none, non-contributory, Hand surgery Psychosocial History Who do you live with Patient/Self Services at Home None What is your primary language Bangladeshi Tobacco Use: Quit >30 days ago Family History Family History, If Any: FATHER FH: myocardial infarction Hx Contributory? No (Damien Macedo DO) Review of Systems Review of Systems Constitutional: Denies: fever. EENTM: Denies: visual changes. Respiratory: Denies: short of breath. Cardiovascular: Denies: chest pain. GI: Denies: abdominal pain. Genitourinary: Reports: no symptoms. Musculoskeletal: Reports: no symptoms. Skin: Reports: no symptoms. Neurological/Psychological: Reports: depressed. Hematologic/Endocrine: Reports: no symptoms. Immunologic/Allergic: Reports: no symptoms. (Damien Macedo DO) Physical Exam Physical Exam General Appearance: alert, awake, anxious, moderate distress Head: atraumatic, normal appearance Eyes: Bilateral: normal appearance, PERRL, EOMI. Ears, Nose, Throat: normal pharynx, normal ENT inspection Neck: normal inspection, supple Respiratory: normal breath sounds, chest non-tender, no respiratory distress Cardiovascular: regular rate/rhythm Gastrointestinal: soft, non-tender Extremities: normal range of motion Neurological/Psychiatric: no motor/sensory deficits, awake, alert, anxious, depressed affect Appearance/Memory/Insight: disheveled Behavoir/Eye Contact/Speech: cooperative Thoughts/Hallucinations: normal thought pattern Skin: intact, normal color, warm/dry SAD PERSONS SAD PERSONS Response Value Male Sex? yes 1 Age <19 or >45 years? yes 1 Depression/Hopelessness? yes 2 Previous Attempts/Psych Care yes 1 Excessive Ethanol/Drug Use? yes 1 Single//? yes 1 Social Support? has no support 1 Total 8 SAD PERSONS Done? yes (Damien Macedo DO) Progress Differential Diagnosis: drug intoxication, drug overdose, drug withdrawal, depression Plan of Care: Orders Procedure Date/time Status Regular Diet 07/06 B Active Add-on Test (ER Only) 07/06 1211 Active Continuous Observation Monitor 07/06 0700 Active Continuous Observation Monitor 07/06 0300 Active Continuous Observation Monitor 07/05 2300 Active Continuous Observation Monitor 07/05 1900 Active DEPAKOTE LEVEL 07/05 1820 Complete Continuous Observation Monitor 07/05 180 Active URINE DRUG SCREEN FOR ER ONLY 07/05 180 Complete URINALYSIS 07/05 180 Complete ETHANOL 07/05 180 Complete COMPREHENSIVE METABOLIC PANEL 07/05 180 Complete CBC WITHOUT DIFFERENTIAL 07/05 1809 Complete ED CRISIS PSYCH CONSULT 07/05 180 Active Laboratory Tests 07/05/187: Urine Opiates Screen < 100, Methadone Screen < 40, Barbiturate Screen < 60, Ur Phencyclidine Scrn < 6.00, Amphetamines Screen < 100, U Benzodiazepines Scrn > 800 H, Urine Cocaine Screen 79, Urine Cannabis Screen 14.80, Urine Color YEL, Urine Clarity CLEAR, Urine pH 7.0, Ur Specific [place] 1.020, Urine Protein NEG, Urine Ketones NEG, Urine Nitrite NEG, Urine Bilirubin NEG, Urine Urobilinogen 1.0, Ur Leukocyte Esterase NEG, Ur Microscopic EXAM NOT REQUIRED, Urine Hemoglobin NEG, Urine Glucose NEG 07/05/181819: Anion Gap 7, Estimated GFR > 60, BUN/Creatinine Ratio 20.0, Glucose 102 H, Calcium 9.2, Total Bilirubin 0.5, AST 21, ALT 55, Alkaline Phosphatase 54, Total Protein 6.8, Albumin 3.8, Globulin 3.0, Albumin/Globulin Ratio 1.3, CBC w Diff NO MAN DIFF REQ, RBC 3.97 L, MCV 100.0 H, MCH 34.6 H, MCHC 34.6, RDW 13.7, MPV 7.3 L, Gran % 66.6, Lymphocytes % 24.0, Monocytes % 8.5, Eosinophils % 0.7, Basophils % 0.2, Absolute Granulocytes 5.3, Absolute Lymphocytes 1.9, Absolute Monocytes 0.7 H, Absolute Eosinophils 0.1, Absolute Basophils 0, Valproic Acid < 10.0 L, Serum Alcohol < 10.0 Initial ED EKG: none (Damien Macedo DO) Hand-Off Endorsed To: Damien Mina MD Endorsed Time: 0700 Pending: other (bed search) (Chapincito Haskins MD) Comments: 07/06/2018 2:28:41 PM patient signed out to me by Dr. 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 Patient has been evaluated by the on-call psychiatrist and the new car get ready mechanic and felt to be stable for outpatient management. (Damien Mina MD) Departure Departure Condition: Stable Referrals: Shweta Womack APRN (PCP/Family) Departure Forms: Customer Survey General Discharge Information Comments The patient was signed out to Dr. Haskins at 7 PM, pending disposition by crisis. (Damien Macedo DO) Departure Disposition: HOME OR SELF CARE Clinical Impression Primary Impression: Depression Qualifiers: Depression Type: unspecified Qualified Code: F32.9 - Major depressive disorder, single episode, unspecified Additional Instructions: Follow-up with Care as soon as possible (call to make an appointment). Notify your primary care doctor of this emergency department visit and treatment plan. Return if any concerns or sudden worsening. Please note that there might be incidental findings in your evaluation that are unrelated to the current emergency department visit. Please notify your primary care doctor about this emergency department visit in order to obtain and review all of the testing performed so that these incidental findings can be monitored as needed. If you had an x-ray performed, please understand that some fractures or other findings may not be seen on the initial set of x-rays. If your symptoms persist you might need a repeat set of x-rays to check for such a fracture. If you had a laceration evaluated, please understand that foreign bodies such as glass or wood may not be visible to the naked eye or on plain x-rays. If the wound becomes red, swollen, increasingly more painful or if there is any drainage from the wound, please have it reevaluated by a physician for the possibility of a retained foreign body. If you're unable to follow up as outlined in the discharge instructions please return to the emergency department. Thank you for choosing the [facility] Emergency Department for your care. It was a pleasure to serve you today. Damien Mina M.D. [facility] (Keeley BOWLING,Damien Hollins)
[2018-07-05] MEDS ORDERED: DEPAKOTE500 M1 PO (18:31)
[2018-07-05] MEDS ORDERED: EFFEXOR XR150 M1 PO (18:34)
[2018-07-05 18:39] LABS: ABSOLUTE BASOPHIL COUNT 0 /CUMM (0.0-0.2); ABSOLUTE EOSINOPHIL COUNT 0.1 /CUMM (0.0-0.7); ABSOLUTE GRANULOCYTE CT 5.3 /CUMM (1.4-6.5); ABSOLUTE LYMPH COUNT 1.9 /CUMM (1.2-3.4); ABSOLUTE MONOCYTE COUNT 0.7 /CUMM (0.10-0.60); BASOPHIL % 0.2 % (0.0-2.0); EOSINOPHIL % 0.7 % (0-5); GRANULOCYTE % 66.6 % (42.2-75.2); HEMATOCRIT 39.7 % (42-52); MEAN CORPUSCULAR HGB 34.6 PG (27.0-31.0); MEAN CORPUSCULAR HGB CONC 34.6 G/DL (33.0-37.0); MEAN PLATELET VOLUME 7.3 FL (7.4-10.4); PLATELET COUNT 435 /CUMM (130-400); RBC DISTRIBUTION WIDTH 13.7 % (11.5-14.5); RED BLOOD CELL CT 3.97 /CUMM (4.70-6.10); WHITE BLOOD CELL COUNT 7.9 /CUMM (4.8-10.8)
--- NOTE | 2018-07-05 21:35 | ED PSYCH CRISIS CONSULTATION ---
Crisis Consult Basic Assessment Date of Consult: 07/05/18 Responsible Person/Accompanied By: Brought in by ambulance Insurance Authorization: Insurance #1: Insurance name: [employer] Policy number: [id number] ED Provider: Patient's ED Provider: Damien Macedo DO Primary Care Physician: Patient's PCP: Shweta Womack APRN PCP's Current Psychiatrist: [facility] Lola Her APRN & Dr. Bolivar Ring. Chief Complaint: Psychiatric Related Complaint Patient's Quote: "I'm very suicidal...I have history of it...Chrissie been contemplating ways..." Present Illness: Patient is a 53 year old male with longstanding psychiatric diagnosis of schizoaffective disorder who presents today to [facility] emergency department with complaint of suicidal ideation with plan. Patient states "I'm not good...I'm very suicidal...I have a history of it...last two days I've been contemplating various ways...hanging...ODing...doing drugs." Patient is receptive to an inpatient psychiatric admission and also is interesting in seeking a long-term residential treatment program. Patient currently resides by himself and states he rents a room in a boarding house. Patient is disabled and receives SSI benefits. Patient has been receiving outpatient treatment at [facility]. He is prescribed Vistaril, Depakote and Effexor. Patient asserts he is compliant with taking his medication. Patient denies medical concerns and was medically cleared by attending ED physician Dr. Macedo with no acute findings. Patient did suffer a fall a few weeks ago. Patient was recently admitted to [facility]'s inpatient psychiatric unit in March 2018. [facility] but he states he did not like area where it was located ([place] Patient asserts he would be okay with being re-referred to [facility] but only to the [place] location. Patient admits to use of crack cocaine in the past month with last use ~3 weeks ago. Patient also admits to intermittent alcohol use - he specified use at "at least a 6 pack of flavored drink - Leo's Hard." Patient reports last alcohol use ~2 days ago. Patient's urine toxicology screening is positive for benzodiazapines. Patient is not prescribed benzos but he reports that he was given one while at [facility] recently for stitch removal. Patient endorses current suicidal ideation, intent and plan. Patient indicates that he fell last month by intentionally trying to break his neck stating "I dove down the stair." Patient denies homicidal ideation currently. Patient endorses visual and auditory hallucination last experienced ~2 days ago. He states he has "visions of people standing close to me....they are demanding." Patient identifies a couple friends as sources of support and also lists his cousin Todd as his primary family support person. Patient was supported by his brother Damien, but patient reports that his brother was in a serious car accident and has been hospitalized since. Patient's Address: [address] [place] [address] Other Phone Number: Who Do You Live With? Patient/Self Family/Informants Interviewed: no family/collateral ID'd Allergies - Coded Allergies: Penicillins (HIVES 01/04/17) Current Medications - Scheduled Medications Divalproex Sodium (Depakote) 500 MG TABLET.DR 2 TAB PO QPM MENTAL HEALTH #60 (Reported) Entered as Reported by Katerin Cnonor on 07/05/18 183 Hydroxyzine Hydrochloride (Atarax) 50 MG TAB 2 TAB PO QPM SLEEP #28 TAB Prescribed by Charbel Castelan on 05/03/18 Multivitamin (One Daily Multivitamin) 1 EACH TABLET 1 TAB PO DAILY vitamin supplement #14 TAB Prescribed by Shai Humphries MD on 04/03/18 Olanzapine 20 MG TABLET 1 TAB PO QPM SLEEP #14 TAB Prescribed by Charbel Castelan on 05/03/18 Last Taken: Unknown Dose at an unknown date and time Pravastatin Sodium (Pravachol) 20 MG TABLET 1 TAB PO DAILY HLD #14 TAB Prescribed by Charbel Castelan on 05/03/18 Venlafaxine HCl (Effexor XR) 150 MG CAP.ER.24H 1 CAP PO DAILY MENTAL HEALTH # 30 (Reported) Entered as Reported by Katerin Connor on 07/05/18 183 Laboratory Results: Laboratory Tests 07/05/182046: Urine Opiates Screen < 100, Methadone Screen < 40, Barbiturate Screen < 60, Ur Phencyclidine Scrn < 6.00, Amphetamines Screen < 100, U Benzodiazepines Scrn > 800 H, Urine Cocaine Screen 79, Urine Cannabis Screen 14.80, Urine Color YEL, Urine Clarity CLEAR, Urine pH 7.0, Ur Specific [place] 1.020, Urine Protein NEG, Urine Ketones NEG, Urine Nitrite NEG, Urine Bilirubin NEG, Urine Urobilinogen 1.0, Ur Leukocyte Esterase NEG, Ur Microscopic EXAM NOT REQUIRED, Urine Hemoglobin NEG, Urine Glucose NEG 07/05/18 1820: Anion Gap 7, Estimated GFR > 60, BUN/Creatinine Ratio 20.0, Glucose 102 H, Calcium 9.2, Total Bilirubin 0.5, AST 21, ALT 55, Alkaline Phosphatase 54, Total Protein 6.8, Albumin 3.8, Globulin 3.0, Albumin/Globulin Ratio 1.3, CBC w Diff NO MAN DIFF REQ, RBC 3.97 L, MCV 100.0 H, MCH 34.6 H, MCHC 34.6, RDW 13.7, MPV 7.3 L, Gran % 66.6, Lymphocytes % 24.0, Monocytes % 8.5, Eosinophils % 0.7, Basophils % 0.2, Absolute Granulocytes 5.3, Absolute Lymphocytes 1.9, Absolute Monocytes 0.7 H, Absolute Eosinophils 0.1, Absolute Basophils 0, Serum Alcohol < 10.0 Past History Past Medical History Neurological: NONE EENT: NONE Cardiovascular: NONE Respiratory: NONE Gastrointestinal: GERD Hepatic: NONE Renal: NONE Musculoskeletal: chronic back pain Psychiatric: alcohol dependence, anxiety, schizo affective disorder (R/O chronic bipolar disorder), substance abuse (mainly "occasional" cocaine) Endocrine: NONE Blood Disorders: NONE Cancer(s): NONE LASTING ROOM SUPERVISOR/Reproductive: NONE Past Surgical History Surgical History: non-contributory, 1 Hand surgery Psychosocial History Strengths/Capabilities: Pt is seeking help pt has stable housing Physical Limitations (Interventions): None identified. Psychiatric Treatment History Psych Treatment Psychiatric Treatment Yes Inpatient Treatment Yes Outpatient Treatment Yes Location of Treatment [facility] is most recent inpatient admission. Care outpatient Reason for Treatment Schizoaffective disorder Dates of Treatment Longstanding treatment Response to Treatment Varies Diagnosis by History: F25.9 - Schizoaffective Disorder F10.20 Alcohol Use Disorder, Severe F14.20 - Stimulant Use Disorder - Cocaine, moderate Medical - none noted Stressors: financial, limited support system Substance Use/Abuse History Drug Use/Abuse 1 Substances Used/Abused Yes Substance Used/Abused Alcohol Drug Use/Abuse 2 Substances Used/Abused Yes Substance Used/Abused Crack Cocaine Last Used 3 weeks ago Substance Abuse Treatment Substance Abuse Treatment Past Substance Abuse [place] Yes Current Mental Status Mental Status Orientation: Person, Place, Situation Affect: Flat Speech: Soft Neuro-vegetative: Anhedonia, Loss of Interest Appearance Appearance- Dress/Hygiene: Patient dressed in hospital attire. Scar visible on face from recent injury in past month. Behaviors Thought Process: WNL Thought Content: WNL Memory: WNL Insight: Poor SI/HI Risk Assessment Past Suicidal Ideation/Attempts Yes Current Suicidal Ideation/Att Yes Past Homicidal Ideation/Att: No Current Homicidal Ideation/Attempts No Degree of Intent: Plan, States Intent Danger To: Self Risk Factors: history of suicide atmpts, SA/MH hospitalized, substance abuse, isolate/no social support, poor impulse control, lack of outcome concern, lives alone, male, limited support Lethality Ratin PTSD Checklist PTSD Done? patient declined ED Management Sitter: Yes Restraints: No (Patient is calm & cooperative.) DSM5/PS Stressors/Medical Prob Diagnosis' (DSM 5, Stressors, Medical): F25.1 Schizoaffective disorder, Depressive type Rule out: F33.1 Major depressive disorder F14.20 Cocaine use disorder F10.20 Alcohol use disorder Current GAF: 25 Departure Disposition Psych Medical Clearance Date: 07/05/18 Medically Cleared at: 2100 Time Started: 2099 Time Ended: 2144 Psychiatrist Consulted: Dr. [place] Borja Date Disposition Established: 07/05/18 Time Disposition Established: 2129 Plan for Disposition - Modality: Hold over for reassessment Rationale for Disposition: Crisis evaluation reviewed with Dr. Borja. Patient will be held over in the emergency department for further evaluation of presentation and psychiatric symptoms. Patient is engaged with an existing outpatient provider who may be able to provide intensive outpatient services. Referrals Shweta Womack APRN (PCP/Family)
[2018-07-06 13:45] VITALS: BP 112/67
--- NOTE | 2018-07-06 14:50 | ED PSY CRISIS COLLATERAL NOTE ---
Collateral Note Collateral Note Family/Inform/Sophia Contacts: Pt was re-evaluated by crisis this afternoon. Pt states he wants to be somewhere for 4 weeks to get his "mind straight". Pt confirms he lives in a boarding house at [address] [place] [address]. Pt states he last tried to kill himself 2 weeks ago when he threw himself down the stairs. He states he needed stitches on his face from this incident. He reports he was given Ativan in the ED when they removed the stitches which is why he states he is testing positive for benzodiazepams. Pt states God is keeping him alive. Pt is inquiring about rehab, stating his last use of crack cocaine was 1 week ago. Pt states he is focused on trying to help himself. Pt does endorse that he has been feeling suicidal for the last few days. He reports that he was thinking about hanging himself or jumping off the 3rd floor. He denies SI today. He denies HI/AH and VH. Pt denies access to guns / hunting knives. Pt attends 1 group weekly ("[employer]"). He also has a foster care case manager and SUPPORT GROUP MANAGER at [facility]. Psychiatrist, Keyana Armendariz MD met with pt after crisis evaluated pt. Pt is psychiatrically cleared for discharge and should follow up with [facility].
--- NOTE | 2018-07-06 15:27 | ED PSYCHIATRIST/APRN CONSULT ---
Psychiatrist/GALLERY OR MUSEUM TECHNICIAN ED Consult Assessment and Plan: 53 yo man with diagnosis of schizoaffective disorder, cocaine and alcohol abuse who presented to the emergency room complaining of suicidal ideation and requesting a long-term residential program. The patient is seen at [facility]. The patient was held overnight and reassessed today. In the emergency room he has been stable, sleeping and eating well. On examination he presented as an age-appropriate 53-year-old male in hospital attire. He was pleasant and appropriate. Eye contact was good. He was alert and oriented 3. Gait was not tested. Speech was normal in rate, rhythm, volume and monotonous in tone. He described his mood as "okay". Affect was flat. He was not suicidal or homicidal. Thought process was normal in tempo, stream and concrete in form. There are no delusions or obsessions. There was no perceptual abnormality. Insight was fair. Judgment is unimpaired. When seen by me the patient again reiterated his request to go to "a long-term program". When asked to watch and he reported "as a learning opportunity, to change my way of thinking about things". Explained to the patient that a long- term residential program was not immediately available from the emergency room and indeed may not be appropriate as he is doing well with curbing his substance abuse. Discussed the possibility of intensive outpatient programming which the patient declined saying "it is not for me". The patient then asked "can I just get a ride home tonight?" When asked whether he would be safe he reported that he will. He says he has some friends that he can speak to and that he can talk to his staff at [facility]. Impression: The patient has some psychosocial stressors. It seems he is unhappy with his housing although it is unclear why. On assessment there is no psychosis, the patient is not intoxicated or withdrawing and there are no signs of pervasive mood disorder. He does not wish to and denies any intent to harm himself if discharged. There is no current indication for psychiatric admission. The patient has limited coping strategies as well as ongoing substance abuse and would benefit from an intensive outpatient program but declines. He will follow-up with his staff at [facility] and will benefit from case management services and perhaps an increase in programming.
== END 2018-07-06 14:40 ==
LOC: ERH 17:53
PROVIDERS: Physician Assistant Medical
DX: F32.9 Major depressive disorder, single episode, unspecified (principal); R45.851 Suicidal ideations; F10.20 Alcohol dependence, uncomplicated; F14.10 Cocaine abuse, uncomplicated
CPT/HCPCS: 80307; 81003; G0463; G0480